=== PATIENT | male | born 1975 | race Caucasian/White ===

== ENCOUNTER 2022-11-14 13:28 | Inpatient (IN) | payer OTHER, SELFPAY ==
[2022-11-14] VITALS (24 sets, daily range): BP systolic 113–171; BP diastolic 85–129; PULSE 82–173; RESP 17–34; TEMP 36.1–36.7; O2SAT 92–98; BMI 32.8; BMI 30.7
--- NOTE | 2022-11-14 13:32 | EKG12_ITS ---
Test Reason : Blood Pressure : / mmHG Vent. Rate : 178 BPM Atrial Rate : 187 BPM P-R Int : 000 ms QRS Dur : 104 ms QT Int : 272 ms P-R-T Axes : 000 083 -42 degrees QTc Int : 468 ms Atrial fibrillation Abnormal ECG Confirmed by LEMUEL CAMACHO MD ([id number]), manager editorial JUVENCIO LI ([id number]) on 11/18/2022 2:40:00 PM Referred By: Confirmed By:LEMUEL CAMACHO MD
--- NOTE | 2022-11-14 13:44 | NURSING ---
NO OLD EKGS
[2022-11-14 13:47] LABS: Absolute Lymphocyte Count 1.08 X10^3/uL (0.83-4.51); Absolute Neutrophil Count 4.3 X10^3/uL (2.0-7.7); Basophil# 0.02 X10^3/uL; Basophil% 0.3 % (0-1); Eosinophil# 0.05 X10^3/uL; Eosinophils% 0.8 % (0-5); Hematocrit 42.9 % (40-54); Hemoglobin 14.1 g/dL (13.0-16.5); Lymphocyte # 1.08 X10^3/ul (0.83-4.51); Lymphocyte % 18.1 % (19-41); Mean Corp Hgb Conc 32.9 g/dL (32-36); Mean Corpuscular Hgb 29.6 pg (27.0-32.0); Mean Corpuscular Volume 90.1 fL (80-94); Mean Platelet Vol. 9.9 fl (6.2-12.0); Monocyte# 0.52 X10^3/uL; Monocyte% 8.7 % (0-10); NRBC Flagged by Analyzer 0 % (0-5); Neutrophil # 4.29 X10^3/uL (2.7-7.7); Neutrophil % 71.9 % (47-70); Platelet Count 145 K/mm3 (150-450); RBC Distribution Width CV 13.8 % (11.6-14.6); RBC Distribution Width SD 46.2 fl (35.1-43.9); Red Blood Count 4.76 M/mm3 (4.6-6.2)
--- NOTE | 2022-11-14 14:01 | RAD_ITS ---
STUDY: X-RAY CHEST REASON FOR EXAM: Male, 47 years old. Chest pain and shortness of breath. TECHNIQUE: Single AP portable view of the chest. COMPARISON: None. FINDINGS: EKG electrodes are seen. Moderate right pleural effusion with right basilar infiltration and/or atelectasis. The left lung is clear. Normal size heart. Normal mediastinum and philomena. Normal visualized pulmonary arteries. Normal visualized aortic arch and descending thoracic aorta. Normal visualized thoracic spine. Normal visualized ribs, clavicles, and shoulders. There is no demonstrated abnormality of the visualized soft tissue structures of the upper abdomen. RAD/Chest 1 View (Portable) IMPRESSION: Moderate right pleural effusion with right basilar atelectasis and/or infiltrate. Electronically Signed: Charles Norton MD at 14:24 EDT ,
[2022-11-14 14:04] LABS: Anion Gap 8 (5-15); BUN 14 mg/dL (7-18); Chloride 109 mmol/L (98-107); Creatinine, Serum 1.17 mg/dL (0.70-1.30); EST Glomerular Filtration Rate 71 mL/min (>60); Est Glom Filt Rate - Afr Amer 86 mL/min (>60); Glucose 89 mg/dL (74-106); Potassium 3.6 mmol/L (3.5-5.1); Sodium Level 142 mmol/L (136-145); Troponin-I HS (w/2H Reflex) 58 pg/mL (3.0-78.0)
[2022-11-14] MEDS: Metoprolol Tartrate 5 MG/5 ML Vial IV ×3 (14:15→14:32)
[2022-11-14 14:58] LABS: BNP,B-Type NATRIURETIC PEPTIDE 480.2 pg/mL (0-100)
[2022-11-14 15:01] LABS: D-Dimer Quantitative (DVT/PE) 3.01 FEU/ug/m (0.27-0.49)
--- NOTE | 2022-11-14 15:06 | CT_ITS ---
STUDY: CTA CHEST REASON FOR EXAM: Male, 47 years old. sob, tachy, elevated dimer RADIATION DOSAGE (If Supplied By Facility): CTDIvol = ( 13.48 ) mGy, DLP = ( 1897.35 ) mGycm TECHNIQUE: The examination was performed with the intravenous administration of IV 100mL Isovue-370. Post-processing of the angiographic images was performed, with multiplanar reformation and 3D reconstruction. Individualized dose optimization techniques were used for this CT. COMPARISON: None. FINDINGS: Normal enhancement of the main pulmonary artery and right and left pulmonary arteries. Normal enhancement of the bilateral peripheral pulmonary arteries. There is no demonstrated pulmonary embolism. Normal thoracic aorta and visualized great vessels. There is no demonstrated aortic dissection. Heart is enlarged. Normal mediastinum. Normal hilar regions. Normal visualized trachea and bronchi. The lungs are well expanded. Large right pleural effusion with consolidation of the right lower lobe and dependent portion of the right upper lobe Normal chest wall structures. Normal osseous structures. There is ascites seen within the upper abdomen as well as nonspecific fatty infiltration of the liver. CT/CTA Chest W/WO Contrast IMPRESSION: Large right pleural effusion with consolidation of the right lower lobe and dependent portion of the right upper lobe. No evidence for pulmonary embolus. Electronically Signed: Dwayne Palm MD at 16:18 EDT ,
--- NOTE | 2022-11-14 15:40 | CT_ITS ---
STUDY: CT ABDOMEN AND PELVIS WITH CONTRAST REASON FOR EXAM: Male, 47 years old. PAIN RADIATION DOSAGE (If Supplied By Facility): CTDIvol = ( 23.71 ) mGy, DLP = ( 1897.35 ) mGycm TECHNIQUE: Transaxial images were obtained from the dome of the diaphragm to the symphysis pubis without oral contrast. IV 100mL Isovue-370 was administered. Sagittal and coronal images were reconstructed. Individualized dose optimization techniques were used for this CT. COMPARISON: None. FINDINGS: Large pleural effusion with right lower lobe consolidation.. Heart appears enlarged with apparent enlargement of the right and left atrial chambers as well as dilatation of the inferior vena cava and hepatic veins.. Echocardiogram may be useful for further consideration if clinically warranted Nonspecific fatty infiltrated liver. There is a tiny rim calcified density along the right lateral capsule measuring approximately 9 mm. Recanalization of the umbilical artery consistent with portal hypertension in association with mild gastrosplenic varices as well as retroperitoneal venous collaterals large amount of abdominopelvic ascites and diffuse mesenteric edema.. Bile ducts are not dilated . Mildly thick walled gallbladder with pericholecystic fluid.. Normal spleen. Normal pancreas. Normal bilateral adrenal glands. Normal right kidney. Normal left kidney. Normal visualized stomach. Normal small intestine. Diverticular disease of the descending and sigmoid colon without evidence for acute diverticulitis.. No evidence for acute appendicitis. Minimal calcific plaquing of the aorta without evidence for aneurysm Normal inferior vena cava. Normal retroperitoneum. Incompletely distended thick walled bladder of uncertain significance Normal abdominal wall. Small venous collaterals noted within the inguinal region Normal osseous structures. CT/Abdomen/Pelvis W IV Cont ONLY IMPRESSION: Diffuse diverticular disease of the colon without evidence for acute diverticulitis Findings consistent with portal hypertension with extensive ascites and mesenteric edema. Large right pleural effusion with consolidation of the right lower lobe Incidental rim calcified density in the right lobe of the liver of uncertain etiology. MRI would be useful for more definitive evaluation if clinically warranted Thick-walled gallbladder without calcified stones. If concern for gallbladder disease ultrasound recommended. Multiple other findings as above Electronically Signed: Dwayne Palm MD at 16:15 EDT ,
[2022-11-14 15:43] LABS: Reflex Troponin-HS? (from REC) Y
--- NOTE | 2022-11-14 16:08 | PCM.HP.STD ---
HPI - General General Date of Admission: 11/14/22 Date of Service: 11/14/22 Chief Complaint: Shortness of breath HPI Narrative MIKEY PHILIP, is a 47 M with history of hypertension and alcohol use disorder who presented to [facility] ED on 11/14/2022 with worsening shortness of breath. Seen at the ED, present. Patient sitting up in bed, conversing normally, in no acute distress. Patient states that he has had worsening shortness of breath over the last 4 to 5 months. States he first noticed his decrease in activity level and shortness of breath with exertion during his beach vacation back in July. Since that time, he has intermittently felt palpitations. He has noticed that his legs and abdomen have progressively become more swollen over that time. States that with regards to his breathing, he has no shortness of breath at rest but with exertion, feels like he has 1 functioning lung and has a very difficult time catching his breath. Patient has history of diagnosed hypertension but is not on any home medications at this time. He reports drinking 10 beers daily for about 15 to 20 years, with about 15-20 beers daily on the weekends. He has been drinking significantly less over the last 4 to 5 months since his symptoms started. He recently went 2 weeks without drinking any alcohol. Has no history of alcohol withdrawal. He otherwise denies any fevers or chills. Denies any abdominal pain or discomfort. No other acute concerns. Vitals in ED notable for heart rate around 110, mild hypertension, satting in mid 90s on room air. Labs notable for WBC count 6, hemoglobin 14, platelets 145, sodium 142, potassium 3.6, BUN 14, creatinine 1.17, total bilirubin 1.7, direct bili 0.6, otherwise normal LFTs, BNP 480. EKG showed A-fib with RVR with heart rate 140, no significant ST changes. Chest x-ray and CTA chest showed large right pleural effusion with consolidation of right lower lobe and dependent portion of right upper lobe, no PE noted, no masses noted. CT abdomen pelvis on admit showed findings consistent with portal hypertension with extensive ascites and mesenteric edema, thick-walled gallbladder without calcified stones. [facility] Medical History Hypertension Home Medications NK 11/14/22 [History Last Taken Unknown] Allergy/AdvReac Type Severity Reaction Status Date / Time No Known Allergies Allergy Verified 11/14/22 13:28 Family History Father Colon cancer Mother Diabetes Surgical History History of foot surgery Social History Smoking Status: Never smoker alcohol intake: never ROS Constitutional Constitutional: Reports fatigue; Denies change in weight, chills or weakness Eyes Eyes: Denies change in vision Cardiovascular Cardiovascular: Reports dyspnea on exertion, edema, orthopnea, palpitations and rapid heart rate; Denies chest pain, lightheadedness or syncope Respiratory/Chest Respiratory/Chest: Denies cough, productive cough, shortness of breath at rest or wheezing Gastrointestinal Gastrointestinal: Denies abdominal pain, constipation, diarrhea, nausea or vomiting Genitourinary Genitourinary: Denies dysuria Musculoskeletal Musculoskeletal: Denies back pain Neurologic Neurologic: Denies dizziness or numbness Vital Signs Vital Signs Vital Signs: 11/14/22 13:30 11/14/22 14:00 11/14/22 14:01 Temperature 96.9 F L Temperature Source Temporal Pulse Rate 151 H Respiratory Rate 20 H Respiratory Effort Normal Non-Labored Respiratory Depth Normal Respiratory Pattern Normal Blood Pressure 171/129 H Blood Pressure Mean 143 Pulse Ox 98 Oxygen Delivery Method Room Air Room Air Room Air 11/14/22 14:01 11/14/22 14:15 11/14/22 14:20 Temperature Temperature Source Pulse Rate 173 H 166 H 138 H Respiratory Rate 24 H 24 H 27 H Respiratory Effort Respiratory Depth Respiratory Pattern Blood Pressure 146/113 H 145/96 H 146/118 H Blood Pressure Mean 122 101 127 Pulse Ox 96 94 94 Oxygen Delivery Method 11/14/22 14:30 11/14/22 14:35 11/14/22 15:01 Temperature Temperature Source Pulse Rate 128 H 126 H Respiratory Rate 17 19 H Respiratory Effort Respiratory Depth Respiratory Pattern Blood Pressure 136/111 H 132/109 H 124/100 H Blood Pressure Mean 119 118 109 Pulse Ox 95 93 Oxygen Delivery Method Physical Exam Const alert, oriented x3, no apparent distress, average body habitus, healthy appearing and well nourished Constitutional Narrative: Pleasant male, sitting up in bed, conversing normally, no acute distress. General Appearance: cooperative, comfortable, well kempt and well developed HEENT normocephalic, head/scalp atraumatic, hearing grossly normal bilaterally, nasal mucous membranes and turbinates normal and moist oral mucous membranes Eyes PERRL, EOMs intact bilaterally and conjunctivae normal Neck full ROM, no lymphadenopathy and supple Lymph Lymphatic: no lymphadenopathy noted Chest inspection of chest normal Resp Resp Narrative: Absent breath sounds from right mid lung down to the right base. Mild crackles noted in upper airways bilaterally. Otherwise good air movement in left lung, no wheezing noted. Satting well on room air, no increased work of breathing noted. Cardio no murmurs and peripheral pulses 2+ throughout Cardio Narrative: A-fib with RVR. GI GI Narrative: Moderately distended, soft, nontender to palpation. Fluid wave noted. Back/Spine normal ROM Extremity normal to inspection and full ROM Extremity Narrative: +2-3 bilateral lower extremity pitting edema. Skin no rashes or lesions noted Psych mental status grossly normal Results Lab / Micro Data 11/14/22 13:35 11/14/22 13:35 Labs: Laboratory Results - last 24 hr 11/14/22 13:35: WBC 6.0, RBC 4.76, Hgb 14.1, Hct 42.9, MCV 90.1, MCH 29.6, MCHC 32.9, RDW Std Deviation 46.2 H, RDW Coeff of Hannah 13.8, Plt Count 145 L, MPV 9.9, Immature Gran % (Auto) 0.200, Neut % (Auto) 71.9 H, Lymph % (Auto) 18.1 L, Wake % (Auto) 8.7, Eos % (Auto) 0.8, Baso % (Auto) 0.3, Absolute Neuts (auto) 4.3, Absolute Lymphs (auto) 1.08, Nucleated RBC % 0, Sodium 142, Potassium 3.6, Chloride 109 H, Carbon Dioxide 25.0, Anion Gap 8, BUN 14, Creatinine 1.17, Est GFR (MDRD) Af Amer 86, Est GFR (MDRD) Non-Af 71, BUN/Creatinine Ratio 12.0, Glucose 89, Calcium 10.0, Troponin I High Sens 58, B-Natriuretic Peptide 480.2 H 11/14/22 14:39: D-Dimer Quant (PE/DVT) 3.01 H* Radiology Impression Chest X-Ray 11/14/22 14:01 IMPRESSION: Moderate right pleural effusion with right basilar atelectasis and/or infiltrate. Electronically Signed: Charles Norton MD at 14:24 EDT , Assessment & Plan Assessment/Plan (1) Atrial fibrillation with rapid ventricular response: PLAN: Plan Patient is a 47-year-old male with history of hypertension and alcohol use disorder who presented to [facility] ED on 11/14/2022 with worsening shortness of breath. 1. A-fib with RVR, new diagnosis; concern for new onset heart failure Primary risk factor seems to be history of heavy alcohol use. Presented to PCP office on 11/14 with intermittent palpitations over the past 4 to 5 months with worsening shortness of breath, EKG showed A-fib with RVR with rate around 140, sent to ED for further evaluation. Repeat EKG in ED was similar, mildly hypertensive, started on Cardizem drip with improvement in heart rate to 110s. [id number] score of 1 (HTN) but given suspected A-fib over past several months and possible tachycardia mediated cardiomyopathy, initiated on heparin drip in the ED for anticoagulation. ? Admit under inpatient status to PCU. Cardiology consulted. Echo ordered. Given 1 dose of IV Lasix 40 mg in ED, will start IV Lasix 40 mg twice daily given volume overload. Continue Cardizem drip for now, goal heart rate less than 110. TSH, hemoglobin A1c, lipid panel ordered. 2. New onset large volume ascites, suspected portal hypertension in setting of known alcohol use disorder Ascites and portal hypertension could be secondary to heart failure in setting of longstanding A-fib with RVR as noted above. However, also have concern for possible cirrhosis in setting of known heavy alcohol use. Patient reported to drinking 10 beers daily for about 15 to 20 years, with often 15-20 beers per day on weekends. Notes his beer intake was somewhat increased during COVID, as he was working from home. Has significantly cut back his alcohol use over the past 4 months since he started having shortness of breath and decreased activity level. Went 2 weeks without drinking alcohol recently. No history of alcohol withdrawal. CT abdomen pelvis on admit showed findings consistent with portal hypertension with extensive ascites and mesenteric edema, thick-walled gallbladder without calcified stones. INR 1.3 on admit. Meld?Na score of 13. ? Interventional radiology consulted for diagnostic and therapeutic paracentesis. Gastroenterology consulted. Daily MELD labs. We will hold on CIWA protocol for now, can start if needed. 3. Large right pleural effusion Suspect secondary to either new onset heart failure versus possible hepatic hydrothorax in setting of new onset ascites from portal hypertension as noted above. Patient has remote history of chewing tobacco use, no cigarette smoking history. Low concern for malignant pleural effusion. Chest x-ray and CTA chest showed large right pleural effusion with consolidation of right lower lobe and dependent portion of right upper lobe, no PE noted, no masses noted. BNP 480. ? Interventional radiology consulted for diagnostic and therapeutic thoracentesis. IV Lasix 40 mg twice daily as above. DVT prophylaxis: Heparin drip CODE STATUS: Full code, verified Expected disposition: Home, 3 to 4 days Total clinical time spent by myself addressing the patient's medical issues, reviewing all the data, and collaborating with patient's care team: 75 minutes. Charges/Coding Visit Charges Inpatient E&M: 65298 Init Hosp L3
[2022-11-14] MEDS: dilTIAZem 25 MG/5 ML Vial 15 MG IV BOLUS (16:11)
[2022-11-14] MEDS: Diltiazem 125 MG in Dextrose 5%-Water (100mL Bag) 100 ML CONT INF (16:12)
--- NOTE | 2022-11-14 16:25 | NURSING ---
106 MOSTELLER AFIB RVR, PLEURAL EFFUSION
--- NOTE | 2022-11-14 16:30 | EX.ED.DYSGE1 ---
HPI History of Present Illness Chief Complaint: Shortness of Breath Informant: patient Narrative Narrative: Patient is a 47-year-old male with history of hypertension (currently not on any medications) as well as alcohol use presenting with atrial fibrillation at PCP office. Patient previously been on lisinopril but stopped it, is unclear why. He does not have a known history of atrial fibrillation. He was seen today because he is having ongoing issues of sound like orthopnea, pain, leg swelling and ice intolerance. Patient states that over the past few months he will wake up frequently at night short of breath and have to go into the recliner. He notes he is active in bed over the past week. Denies any fever or chills. Denies any chest pain. Palpitations as much as feels that when he is doing minor activities such as yard work his heart having to work a lot harder than it normally would. Denies any significant GI or symptoms. Denies any fever or chills. No other complaints at this time. [facility] Medical History Hypertension Home Medications NK 11/14/22 [History Last Taken Unknown] Allergy/AdvReac Type Severity Reaction Status Date / Time No Known Allergies Allergy Verified 11/14/22 13:28 Family History Father Colon cancer Mother Diabetes Surgical History History of foot surgery Social History Smoking Status: Never smoker alcohol intake: never ROS ROS ED Constitutional Constitutional ED: Denies chills or fever(s) Cardiovascular Cardiovascular: Reports orthopnea and paroxysmal nocturnal dyspnea; Denies chest pain or palpitations Respiratory/Chest Respiratory/Chest: Reports dyspnea, orthopnea and paroxysmal nocturnal dyspnea; Denies cough Gastrointestinal Gastrointestinal: Reports other Details: Bloating ; Denies abdominal pain, nausea or vomiting Musculoskeletal Musculoskeletal: Denies arthralgias or myalgias Integumentary Denies rash Neurologic Neurologic: Denies headache(s) or weakness Psychiatric Psychiatric: Denies anxiety Hematologic/Lymphatic Hematologic/Lymphatic: Denies easy bleeding or easy bruising EXAM Physical Exam Const Vital Signs: 11/14/22 13:30 11/14/22 14:00 11/14/22 14:01 Temperature 96.9 F L Temperature Source Temporal Pulse Rate 151 H Respiratory Rate 20 H Respiratory Effort Normal Non-Labored Respiratory Depth Normal Respiratory Pattern Normal Blood Pressure 171/129 H Blood Pressure Mean 143 Pulse Ox 98 Oxygen Delivery Method Room Air Room Air Room Air 11/14/22 14:01 11/14/22 14:15 11/14/22 14:20 Temperature Temperature Source Pulse Rate 173 H 166 H 138 H Respiratory Rate 24 H 24 H 27 H Respiratory Effort Respiratory Depth Respiratory Pattern Blood Pressure 146/113 H 145/96 H 146/118 H Blood Pressure Mean 122 101 127 Pulse Ox 96 94 94 Oxygen Delivery Method 11/14/22 14:30 11/14/22 14:35 11/14/22 15:01 Temperature Temperature Source Pulse Rate 128 H 126 H Respiratory Rate 17 19 H Respiratory Effort Respiratory Depth Respiratory Pattern Blood Pressure 136/111 H 132/109 H 124/100 H Blood Pressure Mean 119 118 109 Pulse Ox 95 93 Oxygen Delivery Method 11/14/22 16:00 Temperature Temperature Source Pulse Rate 128 H Respiratory Rate 29 H Respiratory Effort Respiratory Depth Respiratory Pattern Blood Pressure 121/111 H Blood Pressure Mean 116 Pulse Ox 94 Oxygen Delivery Method Positive well nourished and well developed General Appearance ED: well developed and NAD HEENT Reports moist mucous membranes Eyes PERRL and EOMs intact bilaterally General Eye ED: Negative for scleral icterus Neck supple and no JVD Chest Wall inspection of chest normal and palpation of chest normal Resp normal respiratory effort Resp Narrative: Diminished breath sounds at the right base Cardio Rate: tachycardic Rhythm: abnormal rhythm irregularly irregular GI normal to inspection, nondistended, normoactive bowel sounds and non-tender Palpation: Negative for tender or guarding Back/Spine no CVA tenderness Extremity Extremity Narrative: 2+ Plus pretibial pitting edema bilateral General Extremety ED: Yes edema General Extremity: edema Neuro oriented x3 Sensorium / Orientation: alert Motor Exam: Negative for general weakness Psych mental status grossly normal Skin no rashes or lesions noted and no wounds General Skin Exam: Negative for jaundice MDM MDM MDM Narrative Medical decision making narrative: Is evaluated for edema and new onset atrial fibrillation with RVR. Protocol orders placed and screening EKG obtained which does show atrial fibrillation with rapid ventricular response. Patient is hemodynamically stable does not require emergent cardioversion. He is given 3 doses of IV metoprolol 5 mg with good blood pressure control but no significant improvement of his blood pressure (heart rate remains above 120). Decision is made to place him on a Cardizem drip. He does have good response with this. He does appear to be mildly fluid overloaded has a pleural effusion on his chest x-ray on the right. This is reviewed by myself as well as radiology. Differential for the cause of his atrial fibrillation, shortness of breath and tachycardia also includes pulmonary emboli so a D-dimer as well as a BMP is ordered. Both of these are elevated. CTA of the chest not show any pulmonary emboli but does show large right pleural effusion with consolidation of the right lower lobe. biomass technician had requested to add on a abdomen and pelvis due to abnormalities found on scalp. This shows findings consistent with portal hypertension with extensive ascites and mesenteric edema. I believe patient will benefit from admission given his multiple abnormal findings as well as his requirement for Cardizem drip. Case is discussed with [place] physician, Dr. Ghotra. We decided to place the patient on a heparin drip. Also discussed potential diagnostic thoracentesis as malignancy is also on the differential. It is possible he could have a component of RIVAS versus alcoholic liver failure. I will add on coags as well as liver panel and lipase. Patient remitted to the PCU. Patient is agreeable this plan of care and cooperative in the emergency room. He is mentating well throughout his ER visit. Lab Data Labs: Laboratory Results - last 24 hr 11/14/22 11/14/22 13:35 14:39 WBC 6.0 RBC 4.76 Hgb 14.1 Hct 42.9 MCV 90.1 MCH 29.6 MCHC 32.9 RDW Std Deviation 46.2 H RDW Coeff of Hannah 13.8 Plt Count 145 L MPV 9.9 Immature Gran % (Auto) 0.200 Neut % (Auto) 71.9 H Lymph % (Auto) 18.1 L Crosby % (Auto) 8.7 Eos % (Auto) 0.8 Baso % (Auto) 0.3 Absolute Neuts (auto) 4.3 Absolute Lymphs (auto) 1.08 Nucleated RBC % 0 D-Dimer Quant (PE/DVT) 3.01 H* Sodium 142 Potassium 3.6 Chloride 109 H Carbon Dioxide 25.0 Anion Gap 8 BUN 14 Creatinine 1.17 Est GFR (MDRD) Af Amer 86 Est GFR (MDRD) Non-Af 71 BUN/Creatinine Ratio 12.0 Glucose 89 Calcium 10.0 Troponin I High Sens 58 B-Natriuretic Peptide 480.2 H Radiography Diagnostic Testing: Clinical Impression(s) from Imaging Studies Chest X-Ray 11/14/22 14:01 IMPRESSION: Moderate right pleural effusion with right basilar atelectasis and/or infiltrate. Electronically Signed: Charles Norton MD at 14:24 EDT , Chest CTA 11/14/22 15:06 IMPRESSION: Large right pleural effusion with consolidation of the right lower lobe and dependent portion of the right upper lobe. No evidence for pulmonary embolus. Electronically Signed: Dwayne Palm MD at 16:18 EDT , Abdomen/Pelvis CT 11/14/22 15:40 IMPRESSION: Diffuse diverticular disease of the colon without evidence for acute diverticulitis Findings consistent with portal hypertension with extensive ascites and mesenteric edema. Large right pleural effusion with consolidation of the right lower lobe Incidental rim calcified density in the right lobe of the liver of uncertain etiology. MRI would be useful for more definitive evaluation if clinically warranted Thick-walled gallbladder without calcified stones. If concern for gallbladder disease ultrasound recommended. Multiple other findings as above Electronically Signed: Dwayne Palm MD at 16:15 EDT , Critical Care Time Critical Care Time: Yes Critical care time (excluding procedures): 30-74 minutes (35), Discussing w/Patient &/or Family/Larry Car Operator and Arranging Admission or Transfer Discharge Plan Triage Chief Complaint: Shortness of Breath ED Provider: Renee Pierre Dx/Rx/DC Orders Clinical Impression: Atrial fibrillation, new onset, Pleural effusion, right, Hypertension, Atrial fibrillation with rapid ventricular response Primary Care Provider: Phoebe Carvalho HOME HEALTH CARE COORDINATOR Disposition Disposition: Acute Care Hospital [facility]
[2022-11-14 16:37] LABS: International Normalized Ratio 1.3; Partial Thromboplast Time 33.3 Seconds (24.1-36.2); Prothrombin Time (Protime)PT. 16.5 SECONDS (11.7-14.9)
[2022-11-14] MEDS: HEPARIN/D5w 25,000 UNITS 25,000 UNITS/250 ML IV.SOLN. 16 UNITS CONT INF (17:19)
[2022-11-14 17:25] LABS: AST(SGOT) 32 U/L (15-37); Alanine Aminotransfer ALT/SGPT 31 U/L (16-61); Albumin, Serum 3.9 g/dL (3.2-5.0); Alkaline Phosphatase 81 U/L (45-117); Bilirubin, Direct 0.61 mg/dL (0.00-0.30); Globulin 3.2 g/dL (2.2-4.2); Lipase 40 U/L (13-75); Protein, Total 7.1 g/dL (6.4-8.2); Troponin-I HS 66 pg/mL (3.0-78.0)
[2022-11-14 17:31] LABS: Thyroid Stim Hormone (TSH) 5.87 uIU/mL (0.358-3.74)
[2022-11-14] MEDS: Furosemide 40 MG/4 ML Vial IV (17:46)
--- NOTE | 2022-11-14 17:53 | ECHOD_ITS ---
Reason For Study: AFIB/FLUTTER Procedure This was a 2D Doppler, Color Flow transthoracic echocardiogram. Exam performed portable in patient room. Left Ventricle Mildly dilated left ventricle. Moderate concentric left ventricular hypertrophy. The left ventricular ejection fraction is 25 %. There is severe global hypokinesis of the left ventricle. Right Ventricle Moderately dilated right ventricle. Moderate global right ventricular systolic dysfunction. Atria The left atrium is mildly enlarged. The right atrium is moderately enlarged. Mitral Valve Normal mitral valve. Mild (1+) mitral valve insufficiency. Tricuspid Valve Normal tricuspid valve. Mild to moderate (1-2+) tricuspid valve insufficiency. Pulmonary artery systolic pressure is 45 mmHg. Aortic Valve Normal aortic valve. Trisinus/trileaflet aortic valve. Pulmonic Valve Normal pulmonic valve. Great Vessels Normal aortic root. The pulmonary artery is normal size. The inferior vena cava is dilated. Pericardium/Pleural No pericardial effusion. MMode/2D Measurements & Calculations LVIDd: 5.5 cm IVSd: 1.4 cm Ao root diam: 3.5 cm LVIDs: 4.3 cm LVPWd: 1.4 cm RVDd: 4.2 cm FS: 21.6 % LAV(MOD-bp): 91.9 ml LVAd ap4: 48.5 cm2 LVAd ap2: 51.9 cm2 LAV(MOD-bp) Indexed: 37.3 ml/m2 LVLd ap4: 9.7 cm LVLd ap2: 9.5 cm LAV(MOD-sp2): 108.1 ml EDV(MOD-sp4): 199.0 ml EDV(MOD-sp2): 239.3 ml LAV(MOD-sp4): 78.8 ml EDV(sp4-el): 205.7 ml EDV(sp2-el): 239.7 ml LVAs ap4: 32.4 cm2 LVAs ap2: 38.4 cm2 LVLs ap4: 8.6 cm LVLs ap2: 8.8 cm ESV(MOD-sp4): 101.3 ml ESV(MOD-sp2): 150.5 ml ESV(sp4-el): 104.2 ml ESV(sp2-el): 142.9 ml EF(MOD-sp4): 49.1 % EF(MOD-sp2): 37.1 % EF(sp4-el): 49.4 % SV(MOD-sp4): 97.7 ml SV(MOD-sp2): 88.8 ml SV(sp4-el): 101.6 ml LA dimension(2D): 5.1 cm LA A4 area: 23.8 cm2 RA A4 area: 28.0 cm2 TAPSE: 2.1 cm Doppler Measurements & Calculations MV E max gold: 94.0 cm/sec Lat Peak E' Gold: 14.6 cm/sec Med Peak E' Gold: 10.5 cm/sec E/E' lat: 6.4 E/E' med: 9.0 Ao V2 max: 164.2 cm/sec LV V1 max: 107.7 cm/sec PA V2 max: 97.4 cm/sec Ao max P.1 mmHg LV V1 max P.7 mmHg Ao V2 mean: 120.6 cm/sec LV V1 mean P.7 mmHg Ao mean P.7 mmHg LV V1 mean: 76.3 cm/sec Ao V2 VTI: 30.0 cm LV V1 VTI: 18.5 cm AV (velocity ratio): 0.62 PI dec slope: 156.9 cm/sec2 TR max gold: 306.6 cm/sec TR max P.6 mmHg ECHO/Echo Complete Interpretation Summary The left ventricular ejection fraction is 25 %. Mildly dilated left ventricle. Moderate concentric left ventricular hypertrophy. There is severe global hypokinesis of the left ventricle. Pulmonary artery systolic pressure is 45 mmHg. Biatrial enlargement Ordering Physician: Drew Ghotra Referring Physician: Phoebe Carvalho Performed By: Lexis Sanchez, RANDOLPH, RVT
[2022-11-14 21:08] LABS: AST(SGOT) 37 U/L (15-37); Alanine Aminotransfer ALT/SGPT 32 U/L (16-61); Albumin, Serum 4.4 g/dL (3.2-5.0); Alkaline Phosphatase 88 U/L (45-117); Bilirubin, Direct 0.57 mg/dL (0.00-0.30); Cholesterol 140 mg/dL (200); Globulin 3.5 g/dL (2.2-4.2); High Density Lipoprotein 36 mg/dL; Protein, Total 7.9 g/dL (6.4-8.2); Triglycerides 86 mg/dL; Very Low Density Lipoprotein 17 mg/dL (5-40)
[2022-11-14 23:29] LABS: Partial Thromboplast Time 106.6 Seconds (24.1-36.2)
--- NOTE | 2022-11-14 23:38 | EKG12_ITS ---
Test Reason : NSR Blood Pressure : / mmHG Vent. Rate : 087 BPM Atrial Rate : 000 BPM P-R Int : 000 ms QRS Dur : 104 ms QT Int : 416 ms P-R-T Axes : 000 082 226 degrees QTc Int : 500 ms Atrial fibrillation Incomplete right bundle branch block ST & T wave abnormality, consider lateral ischemia Prolonged QT Abnormal ECG When compared with ECG of 14-NOV-2022 13:36, MANUAL COMPARISON REQUIRED, DATA IS UNCONFIRMED Confirmed by DOUG CORONADO, LEMUEL ([id number]), photography editor MICHELLE SALAZAR ([id number]) on 12/01/2022 1:10:23 PM Referred By: Confirmed By:LEMUEL CAMACHO MD
[2022-11-15] VITALS (19 sets, daily range): BP systolic 92–156; BP diastolic 71–138; PULSE 67–107; RESP 14–25; TEMP 36.4–36.7; O2SAT 90–98; BMI 30.9
--- NOTE | 2022-11-15 | FLU_PTH ---
PATIENT: MIKEY PHILIP LOC: [facility] U#:[id number] AGE/SX: 47/M ROOM: [facility] RE11/14/[address]: Dr. Kris Vásquez MD : [id number] BED: 1 DIS: 11/17/2022 SPEC #: [id number] RECD: 11/15/22 10:59 STATUS: MEHRDAD REQ #: [id number] JACQUE: 11/15/22 00:[address]: Kris Vásquez DEPT: CYTOLOGY RECD BY: Darrick Bynum ENTERED: 11/16/22 10:30 SP TYPE: Fluid OTHR DR: DO Dr. Daniel Sanches MD Dr. Gabriele Pedicelli, MD Elizabeth Steiner, [employer]C Tissues: THORACIC FLUID Procedures: Special Stain Group II Surgery Specimen Level IV Cytospin Fluid HEADER OPERATION: Ultrasound-guided thoracentesis, right PRE-OP DIAGNOSIS: Right pleural effusion TISSUE SUBMITTED: Thoracentesis fluid for cytology DIAGNOSIS CYTOLOGY Thoracentesis fluid for cytology (cytospin and cell block): Negative for malignant cells. See comment. JAY:shiv 11/17/2022 COMMENT Clinical correlation and appropriate follow up are necessary. CYTOLOGY STUDY Slides are reviewed. CYTOLOGY GROSS Received is 80 ml of yellow cloudy fluid labeled with the patient's name and and designated per the requisition as thoracentesis. Submitted for cytology preparation including cell block. / shiv 11/16/2022 TC:5 CPT: 20330, 47631
--- NOTE | 2022-11-15 00:20 | NURSING ---
Patient appears to have p-waves during tele assessment, patient HR has been 70-100BPM, patient appears to be in SA with PVC's, PAC's and pauses, rhythm appears regular otherwise, EKG ordered to verify that patient is not in SA.
[2022-11-15] MEDS: Diltiazem 125 MG in Dextrose 5%-Water (100mL Bag) 100 ML 10 MG CONT INF (04:42)
[2022-11-15] MEDS: Furosemide 40 MG/4 ML Vial IV ×2 (04:43→17:55)
--- NOTE | 2022-11-15 07:47 | PN.HOSP_ITS ---
Reason for Visit Reason for Visit: Diagnoses Unspecified atrial fibrillation (11/14/22) Objective Data Objective Data Vital Signs: Vital Signs Temp Pulse Resp BP Pulse Ox O2 Del Method 98.1 F 69 17 109/81 H 96 Room Air 11/15/22 00:05 11/15/22 06:00 11/15/22 06:00 11/15/22 06:00 11/15/22 06:00 11/15/22 06:00 Oxygen Delivery Method Room Air Weight: 112.3 kg Body Mass Index (BMI) 30.9 Intake & Output: Intake and Output for Last 24 Hours 11/13/22 11/14/22 11/15/22 23:59 23:59 23:59 Intake Total 160.77 / 160.77 70 / 70 Balance 160.77 / 160.77 Lab / Micro Data 11/14/22 13:35 11/14/22 13:35 Labs: Laboratory Results - last 24 hr 11/14/22 13:35: WBC 6.0, RBC 4.76, Hgb 14.1, Hct 42.9, MCV 90.1, MCH 29.6, MCHC 32.9, RDW Std Deviation 46.2 H, RDW Coeff of Hannah 13.8, Plt Count 145 L, MPV 9.9, Immature Gran % (Auto) 0.200, Neut % (Auto) 71.9 H, Lymph % (Auto) 18.1 L, [place] % (Auto) 8.7, Eos % (Auto) 0.8, Baso % (Auto) 0.3, Absolute Neuts (auto) 4.3, Absolute Lymphs (auto) 1.08, Nucleated RBC % 0, Sodium 142, Potassium 3.6, Chloride 109 H, Carbon Dioxide 25.0, Anion Gap 8, BUN 14, Creatinine 1.17, Est GFR (MDRD) Af Amer 86, Est GFR (MDRD) Non-Af 71, BUN/Creatinine Ratio 12.0, Glucose 89, Calcium 10.0, Troponin I High Sens 58, B-Natriuretic Peptide 480.2 H 11/14/22 14:39: D-Dimer Quant (PE/DVT) 3.01 H* 11/14/22 16:20: PT 16.5 H, INR 1.3, APTT 33.3 11/14/22 16:45: Hemoglobin A1c 5.0, Total Bilirubin 1.70 H, Direct Bilirubin 0.61 H, AST 32, ALT 31, Alkaline Phosphatase 81, Troponin I High Sens 66, Total Protein 7.1, Albumin 3.9, Globulin 3.2, Lipase 40, TSH 5.87 H 11/14/22 17:53: Total Bilirubin 1.70 H, Direct Bilirubin 0.57 H, AST 37, ALT 32, Alkaline Phosphatase 88, Total Protein 7.9, Albumin 4.4, Globulin 3.5, Triglycerides 86, Cholesterol 140, LDL Cholesterol 87, VLDL Cholesterol 17, HDL Cholesterol 36 L 11/14/22 22:51: APTT 106.6 H* Radiography Diagnostic Testing: Radiology Impression Chest X-Ray 11/14/22 14:01 IMPRESSION: Moderate right pleural effusion with right basilar atelectasis and/or infiltrate. Electronically Signed: Charles Norton MD at 14:24 EDT , Chest CTA 11/14/22 15:06 IMPRESSION: Large right pleural effusion with consolidation of the right lower lobe and dependent portion of the right upper lobe. No evidence for pulmonary embolus. Electronically Signed: Dwayne Palm MD at 16:18 EDT , Abdomen/Pelvis CT 11/14/22 15:40 IMPRESSION: Diffuse diverticular disease of the colon without evidence for acute diverticulitis Findings consistent with portal hypertension with extensive ascites and mesenteric edema. Large right pleural effusion with consolidation of the right lower lobe Incidental rim calcified density in the right lobe of the liver of uncertain etiology. MRI would be useful for more definitive evaluation if clinically warranted Thick-walled gallbladder without calcified stones. If concern for gallbladder disease ultrasound recommended. Multiple other findings as above Electronically Signed: Dwayne Palm MD at 16:15 EDT , Physical Exam Narrative GENERAL: cooperative HEENT: Atraumatic; normocephalic EYES; Anicteric, Normal Conjunctiva NECK; supple, normal thyroid, RESPIRATORY: Diminished to auscultation CARDIOVASCULAR: Regular S1 S2, GI: soft, normoactive bowel sounds, : No Renal angle tenderness; EXTREMITIES: No edema, no clubbing, MUSCULOSKELETAL: no muscle wasting NEURO: Awake; no lateralizing signs. SKIN: No Rash PSYCH; Flat affect Assessment & Plan Assessment/Plan (1) Atrial fibrillation with rapid ventricular response: PLAN: Plan Patient is a 47-year-old male with history of hypertension and alcohol use disorder who presented to [facility] ED on 11/14/2022 with worsening shortness of breath. 1. A-fib with RVR, new diagnosis; 2. Acute congestive heart failure 3. Large right-sided pleural effusion 4. Ascites in the setting of suspected cirrhosis of the liver 5. Chronic alcohol use 6. Class I obesity with BMI of 30 concern for new onset heart failure Primary risk factor seems to be history of heavy alcohol use. Presented to PCP office on 11/14 with intermittent palpitations over the past 4 to 5 months with worsening shortness of breath, EKG showed A-fib with RVR with rate around 140, sent to ED for further evaluation. Repeat EKG in ED was similar, mildly hypertensive, started on Cardizem drip with improvement in heart rate to 110s. [id number] score of 1 (HTN) but given suspected A-fib over past several months and possible tachycardia mediated cardiomyopathy, initiated on heparin drip in the ED for anticoagulation. ? Admit under inpatient status to PCU. Cardiology consulted. Echo ordered. Given 1 dose of IV Lasix 40 mg in ED, will start IV Lasix 40 mg twice daily given volume overload. Continue Cardizem drip for now, goal heart rate less than 110. TSH, hemoglobin A1c, lipid panel ordered. 2. New onset large volume ascites, suspected portal hypertension in setting of known alcohol use disorder Ascites and portal hypertension could be secondary to heart failure in setting of longstanding A-fib with RVR as noted above. However, also have concern for possible cirrhosis in setting of known heavy alcohol use. Patient reported to drinking 10 beers daily for about 15 to 20 years, with often 15-20 beers per day on weekends. Notes his beer intake was somewhat increased during COVID, as he was working from home. Has significantly cut back his alcohol use over the past 4 months since he started having shortness of breath and decreased activity level. Went 2 weeks without drinking alcohol recently. No history of alcohol w ithdrawal. CT abdomen pelvis on admit showed findings consistent with portal hypertension with extensive ascites and mesenteric edema, thick-walled gallbladder without calcified stones. INR 1.3 on admit. Meld?Na score of 13. ? Interventional radiology consulted for diagnostic and therapeutic para centesis. Gastroenterology consulted. Daily MELD labs. We will hold on CIWA protocol for now, can start if needed. 3. Large right pleural effusion Suspect secondary to either new onset heart failure versus possible hepatic hydrothorax in setting of new onset ascites from portal hypertension as noted above. Patient has remote history of chewing tobacco use, no cigarette smoking history. Low concern for malignant pleural effusion. Chest x-ray and CTA chest showed large right pleural effusion with consolidation of right lower lobe and dependent portion of right upper lobe, no PE noted, no masses noted. BNP 480. ? Interventional radiology consulted for diagnostic and therapeutic thorace ntesis. IV Lasix 40 mg twice daily as above. DVT prophylaxis: Heparin drip CODE STATUS: Full code, verified Expected disposition: Home, 3 to 4 days Total clinical time spent by myself addressing the patient's medical issues, reviewing all the data, and collaborating with patient's care team: 75 minutes.
--- NOTE | 2022-11-15 07:47 | PCM.PN.HOSP ---
Reason for Visit Reason for Visit: Diagnoses Unspecified atrial fibrillation (11/14/22) Subjective Subjective Patient is a 47-year-old male with history of chronic alcohol use as well as hypertension presented to the emergency department with worsening shortness of breath with abdominal distention and bilateral lower extremity swelling Objective Data Objective Data Vital Signs: Vital Signs Temp Pulse Resp BP Pulse Ox O2 Del Method 98.1 F 69 17 109/81 H 96 Room Air 11/15/22 00:05 11/15/22 06:00 11/15/22 06:00 11/15/22 06:00 11/15/22 06:00 11/15/22 06:00 Oxygen Delivery Method Room Air Weight: 112.3 kg Body Mass Index (BMI) 30.9 Intake & Output: Intake and Output for Last 24 Hours 11/13/22 11/14/22 11/15/22 23:59 23:59 23:59 Intake Total 160.77 / 160.77 70 / 70 Balance 160.77 / 160.77 70 / 70 Lab / Micro Data 11/15/22 08:33 11/14/22 13:35 Labs: Laboratory Results - last 24 hr 11/14/22 13:35: WBC 6.0, RBC 4.76, Hgb 14.1, Hct 42.9, MCV 90.1, MCH 29.6, MCHC 32.9, RDW Std Deviation 46.2 H, RDW Coeff of Hannah 13.8, Plt Count 145 L, MPV 9.9, Immature Gran % (Auto) 0.200, Neut % (Auto) 71.9 H, Lymph % (Auto) 18.1 L, Will % (Auto) 8.7, Eos % (Auto) 0.8, Baso % (Auto) 0.3, Absolute Neuts (auto) 4.3, Absolute Lymphs (auto) 1.08, Nucleated RBC % 0, Sodium 142, Potassium 3.6, Chloride 109 H, Carbon Dioxide 25.0, Anion Gap 8, BUN 14, Creatinine 1.17, Est GFR (MDRD) Af Amer 86, Est GFR (MDRD) Non-Af 71, BUN/Creatinine Ratio 12.0, Glucose 89, Calcium 10.0, Troponin I High Sens 58, B-Natriuretic Peptide 480.2 H 11/14/22 14:39: D-Dimer Quant (PE/DVT) 3.01 H* 11/14/22 16:20: PT 16.5 H, INR 1.3, APTT 33.3 11/14/22 16:45: Hemoglobin A1c 5.0, Total Bilirubin 1.70 H, Direct Bilirubin 0.61 H, AST 32, ALT 31, Alkaline Phosphatase 81, Troponin I High Sens 66, Total Protein 7.1, Albumin 3.9, Globulin 3.2, Lipase 40, TSH 5.87 H 11/14/22 17:53: Total Bilirubin 1.70 H, Direct Bilirubin 0.57 H, AST 37, ALT 32, Alkaline Phosphatase 88, Total Protein 7.9, Albumin 4.4, Globulin 3.5, Triglycerides 86, Cholesterol 140, LDL Cholesterol 87, VLDL Cholesterol 17, HDL Cholesterol 36 L 11/14/22 22:51: APTT 106.6 H* Radiography Diagnostic Testing: Radiology Impression Chest X-Ray 11/14/22 14:01 IMPRESSION: Moderate right pleural effusion with right basilar atelectasis and/or infiltrate. Electronically Signed: Charles Norton MD at 14:24 EDT , Chest CTA 11/14/22 15:06 IMPRESSION: Large right pleural effusion with consolidation of the right lower lobe and dependent portion of the right upper lobe. No evidence for pulmonary embolus. Electronically Signed: Dwayne Palm MD at 16:18 EDT , Abdomen/Pelvis CT 11/14/22 15:40 IMPRESSION: Diffuse diverticular disease of the colon without evidence for acute diverticulitis Findings consistent with portal hypertension with extensive ascites and mesenteric edema. Large right pleural effusion with consolidation of the right lower lobe Incidental rim calcified density in the right lobe of the liver of uncertain etiology. MRI would be useful for more definitive evaluation if clinically warranted Thick-walled gallbladder without calcified stones. If concern for gallbladder disease ultrasound recommended. Multiple other findings as above Electronically Signed: Dwayne Palm MD at 16:15 EDT , Physical Exam Narrative GENERAL: cooperative HEENT: Atraumatic; normocephalic EYES; Anicteric, Normal Conjunctiva NECK; supple, normal thyroid, RESPIRATORY: Diminished to auscultation CARDIOVASCULAR: Regular S1 S2, GI: soft, normoactive bowel sounds, ascites : No Renal angle tenderness; EXTREMITIES: edema, no clubbing, MUSCULOSKELETAL: no muscle wasting NEURO: Awake; no lateralizing signs. SKIN: No Rash PSYCH; Flat affect Assessment & Plan Assessment/Plan (1) Atrial fibrillation with rapid ventricular response: PLAN: Plan Patient is a 47-year-old male with history of chronic alcohol use as well as hypertension presented to the emergency department with worsening shortness of breath with abdominal distention and bilateral lower extremity swelling 1. A-fib with RVR, new diagnosis; ? Patient admitted to a monitored bed started on Cardizem drip as well as heparin. Echo ordered as part of patient's management. Patient heparin discontinued given patient low [id number] score of 1 (HTN). 2. Acute congestive heart failure ? Per stated by patient A-fib with RVR as well as suspected underlying cardiomyopathy from alcohol use echo ordered for subsequent assessment. Placed on strict input and output, daily weight, low-sodium diet and diuretic therapy 3. Large right-sided pleural effusion ? Order placed for patient to undergo ultrasound-guided diagnostic and therapeutic thoracocentesis 4. Ascites i ? Do suspect underlying cyst cirrhosis of the liver given patient chronic alcohol use. An order placed for diagnostic and therapeutic paracentesis 5. Chronic alcohol use ? Counseled on cessation 6. Class I obesity with BMI of 30 ? Weight loss advised 7. Essential hypertension ? Currently not on any medications 8. DVT prophylaxis ? Patient was on heparin discontinued Time spent in the patient's overall evaluation,decision-making process, review of diagnostic data, adjustment of management, discussion with other providers, nursing nursing and ancillary staff involved in patient's care documentation, 50 Minutes Charges/Coding Visit Charges Inpatient E&M: 02053 Subs Hosp L3
--- NOTE | 2022-11-15 07:47 | PCM.CONS.C ---
Assessment & Plan Assessment/Plan (1) Atrial fibrillation with rapid ventricular response: PLAN: He presents with new onset atrial fibrillation with rapid ventricular response rate. My suspicion is that this is due to holiday heart and alcohol. Will recommend control with intravenous diltiazem Add carvedilol Continue intravenous heparin for now but ultimately does not need long-term anticoagulation. His [id number] score is 1. (2) Hypertension: PLAN: He appears to be rather hypertensive. The plan would be to start him on carvedilol and titrate upwards as appropriate quickly and add an PATRICIA inhibitor as well as spironolactone. (3) CHF (congestive heart failure), NYHA class III: PLAN: He will have an echocardiogram performed today. My suspicion is that he does have a significant cardiomyopathy. Will recommend guideline directed medical therapy with carvedilol Add PATRICIA inhibitor or ARB and eventually switch to ARNI Spironolactone 25 mg a day Intravenous Lasix We will add an SGLT2 inhibitor (4) Pleural effusion, right: PLAN: He does have a large right pleural effusion. I suspect that the above is likely transudative from his increased right-sided pressures. He may need thoracentesis for relief of symptoms. HPI Consult Data Date of Consult: 11/15/22 HPI Narrative HPI Narrative: MIKEY PHILIP, is a 47 M who presents to the emergency room complaining of shortness of breath pedal edema as well as palpitations. The shortness of breath has been worsening over the last 4 to 5 months his activity level has decreased since the application back in July. He is also had these intermittent palpitations. He does have a history of hypertension and he also likes to drink a fair amount of beer drinking about 10 beers daily for the last 15 to 20 years and more so at the weekends. He denies any chest discomfort but he has some abdominal bloating and he has had some pedal edema. He has not had any syncopal episodes and does not have any previous cardiac disease though he has a strong family history of coronary disease. In the emergency room he was noted to be in atrial fibrillation with a rapid ventricular response rate and also had a large right pleural effusion. [facility] Medical History (Updated 11/15/22 @ 07:[address] Daniel Cabrera MD) Hypertension Home Medications NK 11/14/22 [History Last Taken Unknown] Allergy/AdvReac Type Severity Reaction Status Date / Time No Known Allergies Allergy Verified 11/14/22 13:28 Family History Father Colon cancer Mother Diabetes Surgical History History of foot surgery Social History Smoking Status: Never smoker alcohol intake: never ROS Constitutional Constitutional: Denies fever(s) or weight loss Eyes Eyes: Reports systems reviewed and no addt'l complaints, except as documented ENT HEENT: Reports systems reviewed and no addt'l complaints, except as documented Cardiovascular Cardiovascular: Reports dyspnea at rest, dyspnea on exertion, palpitations and paroxysmal nocturnal dyspnea; Denies chest pain at rest, chest pain with activity or edema Respiratory/Chest Respiratory/Chest: Reports dyspnea on exertion, shortness of breath at rest and shortness of breath with exertion; Denies productive cough Gastrointestinal Gastrointestinal: Denies change in bowel habits, nausea, vomiting or weight changes Genitourinary Genitourinary: Denies difficulty urinating Musculoskeletal Musculoskeletal: Denies joint stiffness or muscle weakness Integumentary Integumentary: Denies lesions Neurologic Neurologic: Denies dizziness or syncope Psychiatric Psychiatric: Denies anxiety Endocrine Endocrinology: Denies excessive sweating or fatigue Hematologic/Lymphatic Hematologic/Lymphatic: Denies anemia Allergic/Immunologic Allergic/Immunologic: Denies seasonal rhinorrhea Physical Exam Const alert, oriented x3 and no apparent distress General Appearance: cooperative HEENT hearing grossly normal bilaterally Head and Scalp: atraumatic Eyes EOMs intact bilaterally Neck General: normal visual inspection Chest inspection of chest normal and palpation of chest normal Resp normal respiratory effort Auscultation: diminished lung sounds right Cardio S1 normal heart sound and S2 normal heart sound Jugular Venous Distention: JVD Rhythm: abnormal rhythm irregularly irregular GI normal to inspection, nondistended, normoactive bowel sounds Extremity normal capillary refill General Extremity: edema bilateral Peripheral Pulses: Yes pulses 2+ throughout and femoral pulses present Skin no rashes or lesions noted Neuro oriented x3 and CN's II-XII intact bilaterally Psych Appearance: grossly normal and appropriate Risk Stratification Risk Stratification Applicable: No Objective Data Vital Signs: Vital Signs Temp Pulse Resp BP Pulse Ox O2 Del Method 98.1 F 69 17 109/81 H 96 Room Air 11/15/22 00:05 11/15/22 06:00 11/15/22 06:00 11/15/22 06:00 11/15/22 06:00 11/15/22 06:00 Oxygen Delivery Method Room Air Weight: 247 lb 9.266 oz Body Mass Index (BMI) 30.9 Intake & Output: Intake and Output for Last 24 Hours 11/13/22 11/14/22 11/15/22 23:59 23:59 23:59 Intake Total 160.77 / 160.77 Balance 160.77 / 160.77 Lab / Micro Data 11/14/22 13:35 11/14/22 13:35 Labs: Laboratory Results - last 24 hr 11/14/22 13:35: WBC 6.0, RBC 4.76, Hgb 14.1, Hct 42.9, MCV 90.1, MCH 29.6, MCHC 32.9, RDW Std Deviation 46.2 H, RDW Coeff of Hannah 13.8, Plt Count 145 L, MPV 9.9, Immature Gran % (Auto) 0.200, Neut % (Auto) 71.9 H, Lymph % (Auto) 18.1 L, [place] % (Auto) 8.7, Eos % (Auto) 0.8, Baso % (Auto) 0.3, Absolute Neuts (auto) 4.3, Absolute Lymphs (auto) 1.08, Nucleated RBC % 0, Sodium 142, Potassium 3.6, Chloride 109 H, Carbon Dioxide 25.0, Anion Gap 8, BUN 14, Creatinine 1.17, Est GFR (MDRD) Af Amer 86, Est GFR (MDRD) Non-Af 71, BUN/Creatinine Ratio 12.0, Glucose 89, Calcium 10.0, Troponin I High Sens 58, B-Natriuretic Peptide 480.2 H 11/14/22 14:39: D-Dimer Quant (PE/DVT) 3.01 H* 11/14/22 16:20: PT 16.5 H, INR 1.3, APTT 33.3 11/14/22 16:45: Hemoglobin A1c 5.0, Total Bilirubin 1.70 H, Direct Bilirubin 0.61 H, AST 32, ALT 31, Alkaline Phosphatase 81, Troponin I High Sens 66, Total Protein 7.1, Albumin 3.9, Globulin 3.2, Lipase 40, TSH 5.87 H 11/14/22 17:53: Total Bilirubin 1.70 H, Direct Bilirubin 0.57 H, AST 37, ALT 32, Alkaline Phosphatase 88, Total Protein 7.9, Albumin 4.4, Globulin 3.5, Triglycerides 86, Cholesterol 140, LDL Cholesterol 87, VLDL Cholesterol 17, HDL Cholesterol 36 L 11/14/22 22:51: APTT 106.6 H* Cardiology Labs/Tests 11/14/22 13:35: WBC 6.0, RBC 4.76, Hgb 14.1, Hct 42.9, MCV 90.1, MCH 29.6, MCHC 32.9, Plt Count 145 L, MPV 9.9, Immature Gran % (Auto) 0.200, Neut % (Auto) 71.9 H, Lymph % (Auto) 18.1 L, [place] % (Auto) 8.7, Eos % (Auto) 0.8, Baso % (Auto) 0.3, Absolute Neuts (auto) 4.3, Nucleated RBC % 0, Sodium 142, Potassium 3.6, Chloride 109 H, Carbon Dioxide 25.0, Anion Gap 8, BUN 14, Creatinine 1.17, Est GFR (MDRD) Af Amer 86, Est GFR (MDRD) Non-Af 71, BUN/Creatinine Ratio 12.0, Glucose 89, Calcium 10.0, B-Natriuretic Peptide 480.2 H 11/14/22 14:39: D-Dimer Quant (PE/DVT) 3.01 H* 11/14/22 16:20: PT 16.5 H, INR 1.3, APTT 33.3 11/14/22 16:45: Hemoglobin A1c 5.0, Total Bilirubin 1.70 H, Direct Bilirubin 0.61 H 11/14/22 17:53: Total Bilirubin 1.70 H, Direct Bilirubin 0.57 H, Triglycerides 86, Cholesterol 140, LDL Cholesterol 87, VLDL Cholesterol 17, HDL Cholesterol 36 L 11/14/22 22:51: APTT 106.6 H* Rhythm: EKG: ECHO: Stress Test: Cardiac Cath: PCI: CT Surgery: Holter monitor: EPS: PPM: CXR: Chest CT Scan: Radiography Diagnostic Testing: Radiology Impression Chest X-Ray 11/14/22 14:01 IMPRESSION: Moderate right pleural effusion with right basilar atelectasis and/or infiltrate. Electronically Signed: Charles Norton MD at 14:24 EDT , Chest CTA 11/14/22 15:06 IMPRESSION: Large right pleural effusion with consolidation of the right lower lobe and dependent portion of the right upper lobe. No evidence for pulmonary embolus. Electronically Signed: Dwayne Palm MD at 16:18 EDT , Abdomen/Pelvis CT 11/14/22 15:40 IMPRESSION: Diffuse diverticular disease of the colon without evidence for acute diverticulitis Findings consistent with portal hypertension with extensive ascites and mesenteric edema. Large right pleural effusion with consolidation of the right lower lobe Incidental rim calcified density in the right lobe of the liver of uncertain etiology. MRI would be useful for more definitive evaluation if clinically warranted Thick-walled gallbladder without calcified stones. If concern for gallbladder disease ultrasound recommended. Multiple other findings as above Electronically Signed: Dwayne Palm MD at 16:15 EDT ,
[2022-11-15 08:56] LABS: Absolute Neutrophil Count 3.7 X10^3/uL (2.0-7.7); Basophil# 0.03 X10^3/uL; Basophil% 0.5 % (0-1); Eosinophil# 0.06 X10^3/uL; Eosinophils% 1.1 % (0-5); Hematocrit 41.9 % (40-54); Hemoglobin 13.6 g/dL (13.0-16.5); Lymphocyte % 21.9 % (19-41); Mean Corp Hgb Conc 32.5 g/dL (32-36); Mean Corpuscular Hgb 28.9 pg (27.0-32.0); Mean Platelet Vol. 9.8 fl (6.2-12.0); Monocyte# 0.46 X10^3/uL; Monocyte% 8.4 % (0-10); NRBC Flagged by Analyzer 0 % (0-5); Neutrophil # 3.71 X10^3/uL (2.7-7.7); Neutrophil % 67.7 % (47-70); Platelet Count 157 K/mm3 (150-450); RBC Distribution Width CV 13.8 % (11.6-14.6); RBC Distribution Width SD 44.9 fl (35.1-43.9); Red Blood Count 4.71 M/mm3 (4.6-6.2); White Blood Count 5.5 K/mm3 (4.4-11.0)
[2022-11-15 09:14] LABS: Partial Thromboplast Time 87.1 Seconds (24.1-36.2)
--- NOTE | 2022-11-15 09:20 | US_ITS ---
PROCEDURE: ULTRASOUND GUIDED THORACENTESIS. DATE: November 15, 2022.. INDICATION: Male, 47 years old. Right pleural effusion. PHYSICIAN: Charles Norton M.D. PROCEDURE: The risks, benefits, and alternatives to the procedure were explained to the patient. The specific risks of bleeding, infection, and pneumothorax requiring chest tube insertion were discussed and accepted. Written informed consent was obtained. Ultrasonographic evaluation of the right lower pleural space was carried out. An adequate pocket was identified. The patient was placed in the sitting, upright position. The overlying skin was prepped and draped in sterile fashion. 1% lidocaine was administered subcutaneously for local anesthesia. Under ultrasound guidance, a 5 [place] thoracentesis needle/catheter system was advanced into the right posterior lower pleural fluid collection. Approximately 2190 mL of susan-colored fluid was drained. The catheter was removed, and a sterile dressing was applied. A specimen was collected and sent to the laboratory for analysis, as requested by the referring clinician. The patient tolerated the procedure well. A chest x-ray was ordered. US/Thoracentesis W US IMPRESSION: Ultrasound-guided right thoracentesis. Electronically Signed: Charles Norton MD at 12:16 EDT ,
[2022-11-15] MEDS: Spironolactone 25 MG Tablet PO (09:46)
[2022-11-15] MEDS: Carvedilol 6.25 MG Tablet PO ×2 (09:47→21:56)
[2022-11-15] MEDS: 0.9% Saline Lock 10 ML Syringe IV (09:48)
[2022-11-15 10:16] LABS: Anion Gap 8 (5-15); BUN 11 mg/dL (7-18); BUN/Creat Ratio 10.6 RATIO (10-20); Calcium,Total 10.1 mg/dL (8.5-10.1); Chloride 104 mmol/L (98-107); Creatinine, Serum 1.04 mg/dL (0.70-1.30); EST Glomerular Filtration Rate 82 mL/min (>60); Est Glom Filt Rate - Afr Amer 99 mL/min (>60); Estimated Creatinine Clearance 106.08 ml/min; Glucose 91 mg/dL (74-106); Magnesium 1.7 mg/dL (1.6-2.6); Potassium 3.1 mmol/L (3.5-5.1); Sodium Level 140 mmol/L (136-145)
--- NOTE | 2022-11-15 10:21 | US_ITS ---
STUDY: ABDOMINAL ULTRASOUND -ascites survey. REASON FOR VISIT: Male, 47 years old cirrhosis TECHNIQUE: Ultrasound evaluation of the 4 quadrants was performed with real-time and static gonzales-scale imaging. TECHNICAL QUALITY: Adequate. COMPARISON: None. FINDINGS: A small pocket of free fluid is seen in the right lower quadrant. US/Abdomen Limited IMPRESSION: Small pocket of free fluid is seen in the right lower quadrant. Electronically Signed: Charles Norton MD at 12:28 EDT ,
[2022-11-15] MEDS: Lidocaine 2% (20 ml mdv) 20 ML Vial INFILT (10:42)
--- NOTE | 2022-11-15 10:50 | RAD_ITS ---
STUDY: X-RAY CHEST REASON FOR EXAM: Male, 47 years old. Immediately post thoracentesis TECHNIQUE: AP inspiration and expiration views. COMPARISON: Comparison is made with prior study November 14, 2022. FINDINGS: The patient is status post right thoracentesis. Mild residual pleural-parenchymal changes persist at the right lung base. No evidence of pneumothorax. RAD/Chest Insp/Exp 2 View IMPRESSION: Status post right thoracentesis. No evidence of pneumothorax. Residual pleural parenchymal changes at the right lung base. Electronically Signed: Charles Norton MD at 12:36 EDT ,
[2022-11-15 12:07] LABS: Ferritin 125 ng/mL (26-388); Iron 99 ug/dL (65-175); Iron Binding Capacity,Total 533 ug/dL (250-450); PERCENT IRON SATURATION 18.6 % (15.0-55.0)
[2022-11-15 14:08] LABS: Glucose, Body Fluid 95 mg/dL (40-70); LDH,Body Fluid 102 Units/L (Not Establ.); Protein, Body Fluid 3.8 g/dL (Not Establ.)
--- NOTE | 2022-11-15 14:25 | CASEMGMT ---
TABITHA ARMAS Discharge Planning Assessment: Face to Face with patient for initial transition planning/care coordination assessment.?ATBITHA ARMAS introduced self and role at [facility], pt alert, oriented and voices understanding. Care providers, pharmacy,?and demographics verified. ? Admitting dx: Afib RVR, Rt Pl effusion PCP: Phoebe Carvalho NP at [facility] Specialists: none Preferred Pharmacy: [facility] Insurance: [employer] Prescription Benefit: yes? Living Will/HPOA: none LNOK: [place] Living Arrangements: Pt lives with his in a two story home. Pt denies any difficulty managing the steps. Pt states he is independent with ADLs including self care and household tasks. Transportation: pt drives and denies any concerns with transportation DME/HHC/SNF: Pt denies ? Pt's goal/plan: return home with the support of his . Pt denies any discharge needs at this time. Will monitor for any anticoagulation or other needs at discharge. Vashti Raza RN CM
[2022-11-15 17:40] LABS: Auto B Fluid Analyzer BKGD Ct COUNTS W/IN LIMITS (W/IN LIMITS)
[2022-11-15 17:41] LABS: Appearance/Body Fluid CLEAR; Color/Body Fluid YELLOW; Source- Body Fluid OTHER
[2022-11-15 17:45] LABS: Red Cell Count/Body Fluid 49 /mm3
[2022-11-15 17:46] LABS: Body Fluid Mononuclear WBC # 0.224 10^3/uL; White Blood Count/Body Fluid 0.249 10^3/uL
[2022-11-15] MEDS: Magnesium Sulfate 2 GM in Dextrose 5%-Water (100mL Bag) 100 ML IV (17:53)
[2022-11-15] MEDS: Potassium Chloride Oral Tablet 20 MEQ 40 MEQ PO (17:54)
[2022-11-15 18:29] LABS: Body Fluid QC Type(s) BF1Q; Lymphocytes 10 %; Monocytes 80 %; Neutrophil (Segs) 10 %
--- NOTE | 2022-11-15 18:56 | EX.PCM.CON.G ---
HPI Consult Data Date of Consult: 11/15/22 HPI Narrative Reason for Consultation: Ascites HPI Narrative: MIKEY PHILIP, is a 47 M who presents with worsening shortness of breath. Patient sitting up in bed, conversing normally, in no acute distress. Patient states that he has had worsening shortness of breath over the last 4 to 5 months. States he first noticed his decrease in activity level and shortness of breath with exertion during his beach vacation back in July. Since that time, he has intermittently felt palpitations. He has noticed that his legs and abdomen have progressively become more swollen over that time. States that with regards to his breathing, he has no shortness of breath at rest but with exertion, feels like he has 1 functioning lung and has a very difficult time catching his breath. Patient has history of diagnosed hypertension but is not on any home medications at this time. He reports drinking 10 beers daily for about 15 to 20 years, with about 15-20 beers daily on the weekends. He has been drinking significantly less over the last 4 to 5 months since his symptoms started. He recently went 2 weeks without drinking any alcohol. Has no history of alcohol withdrawal. He otherwise denies any fevers or chills. Denies any abdominal pain or discomfort. No other acute concerns. Vitals in ED notable for heart rate around 110, mild hypertension, satting in mid 90s on room air. Labs notable for WBC count 6, hemoglobin 14, platelets 145, sodium 142, potassium 3.6, BUN 14, creatinine 1.17, total bilirubin 1.7, direct bili 0.6, otherwise normal LFTs, BNP 480. EKG showed A-fib with RVR with heart rate 140, no significant ST changes. Chest x-ray and CTA chest showed large right pleural effusion with consolidation of right lower lobe and dependent portion of right upper lobe, no PE noted, no masses noted. CT abdomen pelvis on admit showed findings consistent with portal hypertension with extensive ascites and mesenteric edema, thick-walled gallbladder without calcified stones. He had an echocardiogram today: The left ventricular ejection fraction is 25 %. Mildly dilated left ventricle. Moderate concentric left ventricular hypertrophy. There is severe global hypokinesis of the left ventricle. Pulmonary artery systolic pressure is 45 mmHg. Biatrial enlargement He also underwent large-volume thoracentesis 2.1L today after his ultrasound of the abdomen pelvis did not show any significant fluid in his abdomen. The fluid from his thoracentesis was consistent with a transudate of fluid. Cytology and cultures pending. [facility] Medical History (Updated 11/15/22 @ 19:[address] Hill Friend, DO) Hypertension Home Medications NK 11/14/22 [History Last Taken Unknown] Allergy/AdvReac Type Severity Reaction Status Date / Time No Known Allergies Allergy Verified 11/14/22 13:28 Family History Father Colon cancer Mother Diabetes Surgical History History of foot surgery Social History Smoking Status: Never smoker alcohol intake: never ROS Constitutional Constitutional: Denies fever(s) or weight loss Eyes Eyes: Reports systems reviewed and no addt'l complaints, except as documented ENT HEENT: Reports systems reviewed and no addt'l complaints, except as documented Cardiovascular Cardiovascular: Reports dyspnea at rest, dyspnea on exertion, palpitations and paroxysmal nocturnal dyspnea; Denies chest pain at rest, chest pain with activity or edema Respiratory/Chest Respiratory/Chest: Reports dyspnea on exertion, shortness of breath at rest and shortness of breath with exertion; Denies productive cough Gastrointestinal Gastrointestinal: Denies change in bowel habits, nausea, vomiting or weight changes Genitourinary Genitourinary: Denies difficulty urinating Musculoskeletal Musculoskeletal: Denies joint stiffness or muscle weakness Integumentary Integumentary: Denies lesions Neurologic Neurologic: Denies dizziness or syncope Psychiatric Psychiatric: Denies anxiety Endocrine Endocrinology: Denies excessive sweating or fatigue Hematologic/Lymphatic Hematologic/Lymphatic: Denies anemia Allergic/Immunologic Allergic/Immunologic: Denies seasonal rhinorrhea Physical Exam Const alert, oriented x3 and no apparent distress General Appearance: cooperative HEENT hearing grossly normal bilaterally Head and Scalp: atraumatic Eyes EOMs intact bilaterally Neck General: normal visual inspection Chest inspection of chest normal and palpation of chest normal Resp normal respiratory effort Auscultation: diminished lung sounds right Cardio S1 normal heart sound and S2 normal heart sound Jugular Venous Distention: JVD Rhythm: abnormal rhythm irregularly irregular GI normal to inspection, nondistended, normoactive bowel sounds Extremity normal capillary refill General Extremity: edema bilateral Peripheral Pulses: Yes pulses 2+ throughout and femoral pulses present Skin no rashes or lesions noted Neuro oriented x3 and CN's II-XII intact bilaterally Psych Appearance: grossly normal and appropriate Lab / Micro Data 11/15/22 08:33 11/15/22 08:33 Labs: Laboratory Results - last 24 hr 11/14/22 17:53: Total Bilirubin 1.70 H, Direct Bilirubin 0.57 H, AST 37, ALT 32, Alkaline Phosphatase 88, Total Protein 7.9, Albumin 4.4, Globulin 3.5, Triglycerides 86, Cholesterol 140, LDL Cholesterol 87, VLDL Cholesterol 17, HDL Cholesterol 36 L 11/14/22 22:51: APTT 106.6 H* 11/15/22 08:33: WBC 5.5, RBC 4.71, Hgb 13.6, Hct 41.9, MCV 89.0, MCH 28.9, MCHC 32.5, RDW Std Deviation 44.9 H, RDW Coeff of Hannah 13.8, Plt Count 157, MPV 9.8, Immature Gran % (Auto) 0.400, Neut % (Auto) 67.7, Lymph % (Auto) 21.9, [place] % (Auto) 8.4, Eos % (Auto) 1.1, Baso % (Auto) 0.5, Absolute Neuts (auto) 3.7, Absolute Lymphs (auto) 1.20, Nucleated RBC % 0, APTT 87.1 H, Sodium 140, Potassium 3.1 L, Chloride 104, Carbon Dioxide 28.0, Anion Gap 8, BUN 11, Creatinine 1.04, Estim Creat Clear Calc 106.08, Est GFR (MDRD) Af Amer 99, Est GFR (MDRD) Non-Af 82, BUN/Creatinine Ratio 10.6, Glucose 91, Calcium 10.1, Magnesium 1.7, Iron 99, TIBC 533 H, Iron Saturation 18.6, Ferritin 125 11/15/22 11:03: Fluid Source OTHER, Fluid Color YELLOW, Fluid Appearance CLEAR, Fluid WBC 0.249, Fluid RBC 49, Fluid Tot Cell Count 0.330, Fld Polynuclear WBCs # 90.000, Fld Polynuclear WBCs % 0.0, Fluid Mononuclear WBCs 0.224, Fld Mononuclear WBCs % 10.0, Fluid Neutrophils 10, Fluid Lymphocytes 10, Fluid Monocytes 80, Fl Pathologist Comment May follow, Fluid Glucose 95 H 11/15/22 11:03: Fluid Glucose Cancelled, Fluid Total Protein 3.8 11/15/22 11:03: Fluid Total Protein Cancelled, Fluid LDH 102 11/15/22 11:03: Fluid LDH Cancelled, Fluid Comment 2 SEE COMMENT Radiology Impression Echocardiogram 11/14/22 17:53 Interpretation Summary The left ventricular ejection fraction is 25 %. Mildly dilated left ventricle. Moderate concentric left ventricular hypertrophy. There is severe global hypokinesis of the left ventricle. Pulmonary artery systolic pressure is 45 mmHg. Biatrial enlargement Ordering Physician: Drew Ghotra Referring Physician: Phoebe Carvalho Performed By: Lexis Sanchez RDCS, RVT Thoracentesis Ultrasound 11/15/22 09:20 IMPRESSION: Ultrasound-guided right thoracentesis. Electronically Signed: Charles Norton MD at 12:16 EDT , Abdomen Ultrasound 11/15/22 10:21 IMPRESSION: Small pocket of free fluid is seen in the right lower quadrant. Electronically Signed: Charles Norton MD at 12:28 EDT , Chest X-Ray 11/15/22 10:50 IMPRESSION: Status post right thoracentesis. No evidence of pneumothorax. Residual pleural parenchymal changes at the right lung base. Electronically Signed: Charles Norton MD at 12:36 EDT , Assessment & Plan Assessment/Plan (1) Hydrothorax: PLAN: The most common pulmonary complications of chronic liver disease are hepatic hydrothorax, hepatopulmonary syndrome, and portopulmonary hypertension. Hepatic hydrothorax is a transudative pleural effusion in a patient with cirrhosis and no evidence of underlying cardiopulmonary disease. Hepatic hydrothorax develops owing to the movement of ascitic fluid into the pleural space. Hepatopulmonary syndrome and portopulmonary hypertension are pathologically linked by the presence of portal hypertension; however, their pathophysiologic mechanisms are significantly different. Hepatopulmonary syndrome is characterized by low pulmonary vascular resistance secondary to intrapulmonary vascular dilatations and hypoxemia; portopulmonary hypertension features elevated pulmonary vascular resistance and constriction/obstruction within the pulmonary vasculature. He has a significant cardiomyopathy that is likely secondary to alcohol. I am not sure if the transudative fluid in his lung is secondary to portal hypertension from his liver or secondary to cardiopulmonary disease. He is on diuretic therapy which should significantly help his reaccumulation of fluid into his lungs. He will need to undergo a liver biopsy to see if he has macrovascular steatosis with portal damage versus cirrhosis with portal damage. As he can get better and regarding his liver if he stops drinking and he does not have cirrhosis. Typically in merlyn hypertension the?PA systolic pressure of >50 mm Hg on echocardiogram or signs of significant right heart dysfunction predicted the presence of portopulmonary hypertension 100% of the time. His PASP was calculated at 45. (2) Alcoholic liver damage: PLAN: He will have a liver biopsy tomorrow so we can see if there is any significant liver damage secondary to alcohol as it is pretty classical liver biopsy. Looking at his biochemical profile he does not have an elevated INR, decreased platelet count, elevated AST and ALT ratio greater than 1 which would make me think he has significant liver disease. Because he does have what appears to be significant liver injury with portal hypertension I send off autoimmune work-up, a viral work-up for liver disease including alpha-1 antitrypsin disease, Cedric's disease, autoimmune hepatitis, hemochromatosis and infiltrative diseases that affect the liver including sarcoidosis, amyloidosis. (3) Gilbert disease: PLAN: I think his elevated indirect bilirubinemia is secondary to Guilbert's disease and unlikely secondary to other underlying liver disease. Charges/Coding Visit Charges Inpatient E&M: 27974 Init Hosp L3
[2022-11-16] VITALS (15 sets, daily range): BP systolic 81–133; BP diastolic 66–117; PULSE 52–128; RESP 15–28; TEMP 36.4–36.8; O2SAT 93–98; BMI 31.1
--- NOTE | 2022-11-16 | LIVB_PTH ---
PATIENT: MIKEY PHILIP LOC: [facility] U#:[id number] AGE/SX: 47/M ROOM: [facility] RE11/14/[address]: Dr. Kris Vásquez MD : [id number] BED: 1 DIS: 11/17/2022 SPEC #: [id number] RECD: 11/16/22 13:28 STATUS: MEHRDAD REMason #: [id number] JACQUE: 11/16/22 00:[address]: Sergio Gray DEPT: SURGICAL PATHOLOGY RECD BY: Darrick Bynum ENTERED: 11/16/22 13:45 SP TYPE: LIVER BX OTHR DR: DO Dr. Daniel Sanches MD Dr. David Kittoe, MD Dr. Gabriele Pedicelli, MD Elizabeth Steiner, KEY RINGER-C Tissues: Liver, NOS Procedures: PAS with Diastase (control) Trichrome (control) Special Stain Group II PAS Stain (control) Surgery Specimen Level V Retic (control) Iron Stain (control) Comments: @ Ordering doctor for SUV edited from to @ by RGOOD at 11/16/22 153 @ Submitting doctor edited from to @ by RGOOD at 11/16/22 1530 HEADER OPERATION: Liver biopsy PRE-OP DIAGNOSIS: Severe portal hypertension TISSUE SUBMITTED: Liver 18-gauge x3 cores MICROSCOPIC DIAGNOSIS Liver, core biopsy: Cirrhosis. See microscopic description and comment. SJ:shiv 11/17/2022 COMMENT Clinical correlation and appropriate follow up are necessary. MICROSCOPIC DESCRIPTION Slides are reviewed. The specimen shows liver parenchymal tissue with distortion of normal architecture into multiple variable sized nodules divided by fibrous septae. Hepatocytes in the nodules show reactive changes. Focal mild nodular inflammation is noted. Fibrous septae in between the nodules show mild to moderate chronic inflammation. Interface inflammation is also noted. Iron stain shows absent iron. Trichrome and reticulin stain highlights the fibrous septae. PAS stain with and without diastase does not show any abnormal accumulation of protein. All stains are performed with appropriate matched controls. GROSS DESCRIPTION Received is one container labeled with the patient's name and not further designated. The specimen consists of three elongated fragments of iraheta soft tissue each measuring 2.0 cm in length and 0.1 cm in diameter. The specimen is totally submitted in one cassette. / JAY:shiv 11/16/2022 TC:5 CPT: 02870, 92960 x5
[2022-11-16 06:25] LABS: Absolute Lymphocyte Count 1.04 X10^3/uL (0.83-4.51); Absolute Neutrophil Count 3.6 X10^3/uL (2.0-7.7); Basophil# 0.01 X10^3/uL; Basophil% 0.2 % (0-1); Eosinophil# 0.06 X10^3/uL; Eosinophils% 1.1 % (0-5); Hematocrit 38.5 % (40-54); Hemoglobin 12.5 g/dL (13.0-16.5); Lymphocyte # 1.04 X10^3/ul (0.83-4.51); Lymphocyte % 19.9 % (19-41); Mean Corp Hgb Conc 32.5 g/dL (32-36); Mean Corpuscular Hgb 28.6 pg (27.0-32.0); Mean Corpuscular Volume 88.1 fL (80-94); Mean Platelet Vol. 9.9 fl (6.2-12.0); Monocyte# 0.54 X10^3/uL; Monocyte% 10.3 % (0-10); NRBC Flagged by Analyzer 0 % (0-5); Neutrophil # 3.56 X10^3/uL (2.7-7.7); Neutrophil % 68.3 % (47-70); Platelet Count 147 K/mm3 (150-450); RBC Distribution Width CV 13.5 % (11.6-14.6); RBC Distribution Width SD 43.9 fl (35.1-43.9); Red Blood Count 4.37 M/mm3 (4.6-6.2); White Blood Count 5.2 K/mm3 (4.4-11.0)
[2022-11-16 07:09] LABS: AST(SGOT) 27 U/L (15-37); Alanine Aminotransfer ALT/SGPT 23 U/L (16-61); Albumin, Serum 3.2 g/dL (3.2-5.0); Alkaline Phosphatase 68 U/L (45-117); Anion Gap 7 (5-15); BUN 14 mg/dL (7-18); BUN/Creat Ratio 14.2 RATIO (10-20); Bilirubin, Direct 0.49 mg/dL (0.00-0.30); Calcium,Total 8.8 mg/dL (8.5-10.1); Chloride 104 mmol/L (98-107); Creatinine, Serum 0.99 mg/dL (0.70-1.30); EST Glomerular Filtration Rate 86 mL/min (>60); Est Glom Filt Rate - Afr Amer 104 mL/min (>60); Estimated Creatinine Clearance 111.43 ml/min; Globulin 2.9 g/dL (2.2-4.2); Glucose 86 mg/dL (74-106); Potassium 3.2 mmol/L (3.5-5.1); Protein, Total 6.1 g/dL (6.4-8.2); Sodium Level 139 mmol/L (136-145)
--- NOTE | 2022-11-16 07:54 | PN.CARD_ITS ---
Subjective Subjective Patient seen and evaluated. Appears to be doing much better. Underwent thoracentesis yesterday. Objective Data Vital Signs: Vital Signs Temp Pulse Resp BP Pulse Ox O2 Del Method 98.2 F 52 L 16 102/74 93 Room Air 11/16/22 03:30 11/16/22 03:30 11/16/22 03:30 11/16/22 03:30 11/16/22 03:30 11/16/22 03:30 Oxygen Delivery Method [4] Room Air Oxygen Delivery Method [3] Room Air Oxygen Delivery Method [2] Room Air Oxygen Delivery Method [1 ( Room Air Initial Baseline)] Oxygen Delivery Method Room Air Weight: 249 lb 9.012 oz Body Mass Index (BMI) 31.1 Intake & Output: Intake and Output for Last 24 Hours 11/14/22 11/15/22 11/16/22 23:59 23:59 23:59 Intake Total 160.77 / 160.77 970.15 / 1620.15 650 / 650 Output Total 2190 / 4380 2190 / 2190 Balance 160.77 / 160.77 -1219.85 / -2759.85 -1540 / -1540 Lab / Micro Data 11/16/22 05:44 11/16/22 05:44 Labs: Laboratory Results - last 24 hr 11/15/22 08:33: WBC 5.5, RBC 4.71, Hgb 13.6, Hct 41.9, MCV 89.0, MCH 28.9, MCHC 32.5, RDW Std Deviation 44.9 H, RDW Coeff of Hannah 13.8, Plt Count 157, MPV 9.8, Immature Gran % (Auto) 0.400, Neut % (Auto) 67.7, Lymph % (Auto) 21.9, Churchill % (Auto) 8.4, Eos % (Auto) 1.1, Baso % (Auto) 0.5, Absolute Neuts (auto) 3.7, Ab solute Lymphs (auto) 1.20, Nucleated RBC % 0, APTT 87.1 H, Sodium 140, Potassium 3.1 L, Chloride 104, Carbon Dioxide 28.0, Anion Gap 8, BUN 11, Creatinine 1.04, Estim Creat Clear Calc 106.08, Est GFR (MDRD) Af Amer 99, Est GFR (MDRD) Non-Af 82, BUN/Creatinine Ratio 10.6, Glucose 91, Calcium 10.1, Magnesium 1.7, Iron 99, TIBC 533 H, Iron Saturation 18.6, Ferritin 125 11/15/22 11:03: Fluid Source OTHER, Fluid Color YELLOW, Fluid Appearance CLEAR, Fluid WBC 0.249, Fluid RBC 49, Fluid Tot Cell Count 0.330, Fld Polynuclear WBCs # 90.000, Fld Polynuclear WBCs % 0.0, Fluid Mononuclear WBCs 0.224, Fld Mononuc lear WBCs % 10.0, Fluid Neutrophils 10, Fluid Lymphocytes 10, Fluid Monocytes 80, Fl Pathologist Comment May follow, Fluid Glucose 95 H 11/15/22 11:03: Fluid Glucose Cancelled, Fluid Total Protein 3.8 11/15/22 11:03: Fluid Total Protein Cancelled, Fluid LDH 102 11/15/22 11:03: Fluid LDH Cancelled, Fluid Comment 2 SEE COMMENT 11/16/22 05:44: WBC 5.2, RBC 4.37 L, Hgb 12.5 L, Hct 38.5 L, MCV 88.1, MCH 28.6, MCHC 32.5, RDW Std Deviation 43.9, RDW Coeff of Hannah 13.5, Plt Count 147 L, MPV 9.9, Immature Gran % (Auto) 0.200, Neut % (Auto) 68.3, Lymph % (Auto) 19.9, Churchill % (Auto) 10.3 H, Eos % (Auto) 1.1, Baso % (Auto) 0.2, Absolute Neuts (auto) 3.6, Absolute Lymphs (auto) 1.04, Nucleated RBC % 0, Sodium 139, Potassium 3.2 L, Chloride 104, Carbon Dioxide 28.0, Anion Gap 7, BUN 14, Creatinine 0.99, Estim Creat Clear Calc 111.43, Est GFR (MDRD) Af Amer 104, Est GFR (MDRD) Non-Af 86, BUN/Creatinine Ratio 14.2, Glucose 86, Calcium 8.8, Total Bilirubin 1.40 H, Direct Bilirubin 0.49 H, AST 27, ALT 23, Alkaline Phosphatase 68, Total Protein 6.1 L, Albumin 3.2, Globulin 2.9 Cardiology Labs/Tests 11/15/22 08:33: WBC 5.5, RBC 4.71, Hgb 13.6, Hct 41.9, MCV 89.0, MCH 28.9, MCHC 32.5, Plt Count 157, MPV 9.8, Immature Gran % (Auto) 0.400, Neut % (Auto) 67.7, Lymph % (Auto) 21.9, Churchill % (Auto) 8.4, Eos % (Auto) 1.1, Baso % (Auto) 0.5, Absolute Neuts (auto) 3.7, Nucleated RBC % 0, APTT 87.1 H, Sodium 140, Potassium 3.1 L, Chloride 104, Carbon Dioxide 28.0, Anion Gap 8, BUN 11, Creatinine 1.04, Est GFR (MDRD) Af Amer 99, Est GFR (MDRD) Non-Af 82, BUN/Creatinine Ratio 10.6, Glucose 91, Calcium 10.1, Magnesium 1.7, Iron 99, TIBC 533 H, Iron Saturation 18.6, Ferritin 125 11/16/22 05:44: WBC 5.2, RBC 4.37 L, Hgb 12.5 L, Hct 38.5 L, MCV 88.1, MCH 28.6, MCHC 32.5, Plt Count 147 L, MPV 9.9, Immature Gran % (Auto) 0.200, Neut % (Auto) 68.3, Lymph % (Auto) 19.9, Churchill % (Auto) 10.3 H, Eos % (Auto) 1.1, Baso % (Auto) 0.2, Absolute Neuts (auto) 3.6, Nucleated RBC % 0, Sodium 139, Potassium 3.2 L, Chloride 104, Carbon Dioxide 28.0, Anion Gap 7, BUN 14, Creatinine 0.99, Est GFR (MDRD) Af Amer 104, Est GFR (MDRD) Non-Af 86, BUN/Creatinine Ratio 14.2, Glucose 86, Calcium 8.8, Total Bilirubin 1.40 H, Direct Bilirubin 0.49 H Rhythm: EKG: ECHO: Stress Test: Cardiac Cath: PCI: CT Surgery: Holter monitor: EPS: PPM: CXR: Chest CT Scan: Radiography Diagnostic Testing: Radiology Impression Echocardiogram 11/14/22 17:53 Interpretation Summary The left ventricular ejection fraction is 25 %. Mildly dilated left ventricle. Moderate concentric left ventricular hypertrophy. There is severe global hypokinesis of the left ventricle. Pulmonary artery systolic pressure is 45 mmHg. Biatrial enlargement Ordering Physician: Drew Ghotra Referring Physician: Phoebe Carvalho Performed By: Lexis Sanchez, RANDOLPH, RVT Thoracentesis Ultrasound 11/15/22 09:20 IMPRESSION: Ultrasound-guided right thoracentesis. Electronically Signed: Charles Norton MD at 12:16 EDT , Abdomen Ultrasound 11/15/22 10:21 IMPRESSION: Small pocket of free fluid is seen in the right lower quadrant. Electronically Signed: Charles Norton MD at 12:28 EDT , Chest X-Ray 11/15/22 10:50 IMPRESSION: Status post right thoracentesis. No evidence of pneumothorax. Residual pleural parenchymal changes at the right lung base. Electronically Signed: Charles Norton MD at 12:36 EDT , Physical Exam Const alert, oriented x3 and no apparent distress General Appearance: cooperative HEENT hearing grossly normal bilaterally Head and Scalp: atraumatic Eyes EOMs intact bilaterally Neck General: normal visual inspection Chest inspection of chest normal and palpation of chest normal Resp normal respiratory effort Auscultation: diminished lung sounds right Cardio S1 normal heart sound and S2 normal heart sound Jugular Venous Distention: JVD Rhythm: abnormal rhythm irregularly irregular GI normal to inspection, nondistended, normoactive bowel sounds Extremity normal capillary refill General Extremity: edema bilateral Peripheral Pulses: Yes pulses 2+ throughout and femoral pulses present Skin no rashes or lesions noted Neuro oriented x3 and CN's II-XII intact bilaterally Psych Appearance: grossly normal and appropriate Assessment & Plan Assessment/Plan (1) Atrial fibrillation with rapid ventricular response: PLAN: He presents with new onset atrial fibrillation with rapid ventricular response rate. My suspicion is that this is due to holiday heart and alcohol. * * Add carvedilol * His ventricular response rate appears to be controlled at this time. We will therefore continue the carvedilol. His [id number] score is 1 and I will hold off on any anticoagulation for now until his hepatic issues are sorted out as well. He may be considered for short-term Eliquis if he is going to need cardioversion for adventist of sinus rhythm. (2) Hypertension: PLAN: He appears to be rather hypertensive. The plan would be to start him on carvedilol and titrate upwards as appropriate quickly and add an PATRICIA inhibitor as well as spironolactone. (3) CHF (congestive heart failure), NYHA class III: PLAN: His echocardiogram demonstrated reduced left ventricular systolic function estimated at 40%. * Will recommend guideline directed medical therapy with carvedilol * Add PATRICIA inhibitor or ARB and eventually switch to ARNI * Spironolactone 25 mg a day * Intravenous Lasix to oral Lasix * We will add an SGLT2 inhibitor (4) Pleural effusion, right: PLAN: He appears to have had significant relief from his thoracentesis. My plan will be to continue oral diuretics for this.
--- NOTE | 2022-11-16 08:09 | CT_ITS ---
PROCEDURE: CT DIRECTED CORE LIVER BIOPSY INDICATION: Male, 47 years old. SEVERe PORTAL HYPERTENSION PHYSICIAN: Dr. Cierra Olivas CONSENT: Written informed consent was obtained having explained the risks, benefits and alternatives in detail with the patient who accepted the risks and agreed to proceed. Laboratory review and clinical assessment was performed. CONSCIOUS SEDATION PROTOCOL: The Drugs used were: 2 mg Versed, IV., and 50 mcg Fentanyl, IV. The sedation time was: 18 minutes. Conscious sedation was started at 1:02 PM and terminated at 1:20 PM. The conscious sedation protocol was independently monitored. RADIATION DOSAGE (If Supplied By Facility): CTDIvol = ( 23 ) mGy, DLP = ( 638.56 ) mGycm Individualized dose optimization techniques were used for this CT. TECHNIQUE: Using CT image guidance with image documentation, a suitable location in the left lobe of the liver was identified. Using an anterior approach, puncture of the liver was uneventful with an 18-gauge core needle system. 3, 18-gauge core samples were obtained, and submitted in formalin to the pathologist for further assessment. Followup CT scan revealed no distinct sequelae. CT/Biopsy/Inj or Needle Placement IMPRESSION: 1. CT directed core needle biopsy of the liver, using CT image guidance with image documentation as described. 2. Conscious Sedation protocol utilized with independent monitoring. Electronically Signed: Charles Norton MD at 13:49 EDT ,
--- NOTE | 2022-11-16 08:14 | PN.HOSP_ITS ---
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 Echo did demo nstrate EF of 25%. Objective Data Objective Data Vital Signs: Vital Signs Temp Pulse Resp BP Pulse Ox O2 Del Method 98.2 F 52 L 16 102/74 93 Room Air 11/16/22 03:30 11/16/22 03:30 11/16/22 03:30 11/16/22 03:30 11/16/22 03:30 11/16/22 03:30 Oxygen Delivery Method [4] Room Air Oxygen Delivery Method [3] Room Air Oxygen Delivery Method [2] Room Air Oxygen Delivery Method [1 ( Room Air Initial Baseline)] Oxygen Delivery Method Room Air Weight: 113.2 kg Body Mass Index (BMI) 31.1 Intake & Output: Intake and Output for Last 24 Hours 11/14/22 11/15/22 11/16/22 23:59 23:59 23:59 Intake Total 160.77 / 160.77 970.15 / 1620.15 650 / 650 Output Total 2190 / 4380 2190 / 2190 Balance 160.77 / 160.77 -1219.85 / -2759.85 -1540 / -1540 Lab / Micro Data 11/16/22 05:44 11/16/22 05:44 Labs: Laboratory Results - last 24 hr 11/15/22 08:33: WBC 5.5, RBC 4.71, Hgb 13.6, Hct 41.9, MCV 89.0, MCH 28.9, MCHC 32.5, RDW Std Deviation 44.9 H, RDW Coeff of Hannah 13.8, Plt Count 157, MPV 9.8, Immature Gran % (Auto) 0.400, Neut % (Auto) 67.7, Lymph % (Auto) 21.9, Ventura % ( Auto) 8.4, Eos % (Auto) 1.1, Baso % (Auto) 0.5, Absolute Neuts (auto) 3.7, Absolute Lymphs (auto) 1.20, Nucleated RBC % 0, APTT 87.1 H, Sodium 140, Potassium 3.1 L, Chloride 104, Carbon Dioxide 28.0, Anion Gap 8, BUN 11, Creatinine 1.04, Estim Creat Clear Calc 106.08, Est GFR (MDRD) Af Amer 99, Est GFR (MDRD) Non-Af 82, BUN/Creatinine Ratio 10.6, Glucose 91, Calcium 10.1, Magnesium 1.7, Iron 99, TIBC 533 H, Iron Saturation 18.6, Ferritin 125 11/15/22 11:03: Fluid Source OTHER, Fluid Color YELLOW, Fluid Appearance CLEAR, Fluid WBC 0.249, Fluid RBC 49, Fluid Tot Cell Count 0.330, Fld Polynuclear WBCs # 90.000, Fld Polynuclear WBCs % 0.0, Fluid Mononuclear WBCs 0.224, Fld Mononuclear WBCs % 10.0, Fluid Neutrophils 10, Fluid Lymphocytes 10, Fluid Monocytes 80, Fl Pathologist Comment May follow, Fluid Glucose 95 H 11/15/22 11:03: Fluid Glucose Cancelled, Fluid Total Protein 3.8 11/15/22 11:03: Fluid Total Protein Cancelled, Fluid LDH 102 11/15/22 11:03: Fluid LDH Cancelled, Fluid Comment 2 SEE COMMENT 11/16/22 05:44: WBC 5.2, RBC 4.37 L, Hgb 12.5 L, Hct 38.5 L, MCV 88.1, MCH 28.6, MCHC 32.5, RDW Std Deviation 43.9, RDW Coeff of Hannah 13.5, Plt Count 147 L, MPV 9.9, Immature Gran % (Auto) 0.200, Neut % (Auto) 68.3, Lymph % (Auto) 19.9, Ventura % (Auto) 10.3 H, Eos % (Auto) 1.1, Baso % (Auto) 0.2, Absolute Neuts (auto) 3.6, Absolute Lymphs (auto) 1.04, Nucleated RBC % 0, Sodium 139, Potassium 3.2 L, Chloride 104, Carbon Dioxide 28.0, Anion Gap 7, BUN 14, Creatinine 0.99, Estim Creat Clear Calc 111.43, Est GFR (MDRD) Af Amer 104, Est GFR (MDRD) Non-Af 86, BUN/Creatinine Ratio 14.2, Glucose 86, Calcium 8.8, Total Bilirubin 1.40 H, Direct Bilirubin 0.49 H, AST 27, ALT 23, Alkaline Phosphatase 68, Total Protein 6.1 L, Albumin 3.2, Globulin 2.9 Radiography Diagnostic Testing: Radiology Impression Echocardiogram 11/14/22 17:53 Interpretation Summary The left ventricular ejection fraction is 25 %. Mildly dilated left ventricle. Moderate concentric left ventricular hypertrophy. There is severe global hypokinesis of the left ventricle. Pulmonary artery systolic pressure is 45 mmHg. Biatrial enlargement Ordering Physician: Drew Ghotra Referring Physician: Phoebe Carvalho Performed By: Lexis Sanchez RDCS, RVT Thoracentesis Ultrasound 11/15/22 09:20 IMPRESSION: Ultrasound-guided right thoracentesis. Electronically Signed: Charles Norton MD at 12:16 EDT , Abdomen Ultrasound 11/15/22 10:21 IMPRESSION: Small pocket of free fluid is seen in the right lower quadrant. Electronically Signed: Charles Norton MD at 12:28 EDT , Chest X-Ray 11/15/22 10:50 IMPRESSION: Status post right thoracentesis. No evidence of pneumothorax. Residual pleural parenchymal changes at the right lung base. Electronically Signed: Charles Norton MD at 12:36 EDT , Physical Exam Narrative GENERAL: cooperative HEENT: Atraumatic; normocephalic EYES; Anicteric, Normal Conjunctiva NECK; supple, normal thyroid, RESPIRATORY: Diminished to auscultation CARDIOVASCULAR: Regular S1 S2, GI: soft, normoactive bowel sounds, ascites : No Renal angle tenderness; EXTREMITIES: edema, no clubbing, MUSCULOSKELETAL: no muscle wasting NEURO: Awake; no lateralizing signs. SKIN: No Rash PSYCH; Flat affect Assessment & Plan Assessment/Plan (1) Atrial fibrillation with rapid ventricular response: PLAN: Plan Patient is a 47-year-old male with history of chronic alcohol use as well as hypertension presented to the emergency department with worsening shortness of breath with abdominal distention and bilateral lower extremity swelling 1. A-fib with RVR, new diagnosis; ? Patient admitted to a monitored bed started on Cardizem drip as well as hepar in. Echo ordered as part of patient's management. Patient heparin discontinued given patient low [id number] score of 1 (HTN). ? 11/16/2022; patient rate is controlled 2. Acute congestive heart failure with reduced ejection fraction ? Per stated by patient A-fib with RVR as well as suspected underlying cardiomyopathy from alcohol use echo ordered for subsequent assessment. Placed on strict input and output, daily weight, low-sodium diet and diuretic therapy ? 11/16/2022; 2D echo demonstrated EF of 25% Case discussed with cardiology patient started on guideline directed medical therapy 3. Large right-sided pleural effusion ? Order placed for patient to undergo ultrasound-guided diagnostic and therapeutic thoracocentesis ? 11/16/2022 patient underwent ultrasound-guided thoracentesis on 11/16/2022 with 2 L of pleural fluid taken off 4. Ascites i ? Do suspect underlying cyst cirrhosis of the liver given patient chronic alcohol use. An order placed for diagnostic and therapeutic paracentesis ? 11/16/2022 patient was seen in consultation by Dr. Gray with GI his notes and recommendations including patient having a biopsy performed on 11/16/2022 reviewed. 5. Chronic alcohol use ? Counseled on cessation 6. Class I obesity with BMI of 30 ? Weight loss advised 7. Essential hypertension ? Currently not on any medications 8. DVT prophylaxis ? Patient was on heparin discontinued Time spent in the patient's overall evaluation,decision-making process, review of diagnostic data, adjustment of management, discussion with other providers, nursing nursing and ancillary staff involved in patient's care documentation, 50 Minutes Charges/Coding Visit Charges Inpatient E&M: 29416 [facility]osp L3
[2022-11-16] MEDS: Carvedilol 6.25 MG Tablet PO (10:46)
[2022-11-16] MEDS: Potassium Chloride Oral Tablet 20 MEQ 40 MEQ PO (10:46)
[2022-11-16] MEDS: Spironolactone 25 MG Tablet PO (10:46)
[2022-11-16] MEDS: Lisinopril 2.5 MG Tablet PO (10:47)
[2022-11-16] MEDS: 0.9% Normal Saline (250mL Bag) 250 ML 15 ML IV (12:41)
[2022-11-16] MEDS: Midazolam 2 MG/2 ML Syringe IV (13:02)
[2022-11-16] MEDS: fentaNYL 100 MCG/2 ML Ampul IV (13:03)
[2022-11-16] MEDS: Lidocaine 2% (20 ml mdv) 20 ML Vial INFILT (13:10)
[2022-11-16 15:08] LABS: Anti-Centromere B Ab <0.2 AI (0.0-0.9); Anti-Chromatin <0.2 AI (0.0-0.9); Anti-Jo <0.2 AI (0.0-0.9); Anti-Mitochondrial AB <20.0 Units (0.0-20.0); Anti-Scleroderma-70 AB <0.2 AI (0.0-0.9); Anti-dsDNA Ab <1 IU/mL (0-9); RNP Ab 0.4 AI (0.0-0.9); SJOGREN'S Anti-SS-A test < 0.2 AI (0.0-0.9); SJOGREN'S Anti-SS-B test < 0.2 AI (0.0-0.9); Smith Ab <0.2 AI (0.0-0.9)
[2022-11-16] MEDS: Furosemide 40 MG Tablet PO (15:46)
[2022-11-17 03:20] VITALS: BP 106/71; PULSE 102; RESP 15; TEMP 36.4; O2SAT 95
[2022-11-17 04:30] VITALS: BMI 29.9
[2022-11-17 05:07] LABS: Ceruloplasmin 28.9 mg/dL (16.0-31.0); Haptoglobin 147 mg/dL (23-355)
[2022-11-17 06:40] LABS: Absolute Lymphocyte Count 1.18 X10^3/uL (0.83-4.51); Absolute Neutrophil Count 2.6 X10^3/uL (2.0-7.7); Basophil# 0.02 X10^3/uL; Basophil% 0.5 % (0-1); Eosinophils% 2.3 % (0-5); Hematocrit 39.9 % (40-54); Hemoglobin 13.4 g/dL (13.0-16.5); Lymphocyte # 1.18 X10^3/ul (0.83-4.51); Lymphocyte % 27.1 % (19-41); Mean Corp Hgb Conc 33.6 g/dL (32-36); Mean Corpuscular Hgb 29.7 pg (27.0-32.0); Mean Corpuscular Volume 88.5 fL (80-94); Mean Platelet Vol. 9.8 fl (6.2-12.0); Monocyte# 0.48 X10^3/uL; NRBC Flagged by Analyzer 0 % (0-5); Neutrophil # 2.57 X10^3/uL (2.7-7.7); Neutrophil % 58.9 % (47-70); Platelet Count 148 K/mm3 (150-450); RBC Distribution Width CV 13.5 % (11.6-14.6); RBC Distribution Width SD 44.3 fl (35.1-43.9); Red Blood Count 4.51 M/mm3 (4.6-6.2); White Blood Count 4.4 K/mm3 (4.4-11.0)
[2022-11-17 07:07] VITALS: O2SAT 96
[2022-11-17 07:18] LABS: AST(SGOT) 31 U/L (15-37); Alanine Aminotransfer ALT/SGPT 25 U/L (16-61); Albumin, Serum 3.2 g/dL (3.2-5.0); Alkaline Phosphatase 69 U/L (45-117); Anion Gap 7 (5-15); BUN 13 mg/dL (7-18); BUN/Creat Ratio 14.9 RATIO (10-20); Calcium,Total 8.9 mg/dL (8.5-10.1); Chloride 105 mmol/L (98-107); Creatinine, Serum 0.87 mg/dL (0.70-1.30); EST Glomerular Filtration Rate 100 mL/min (>60); Est Glom Filt Rate - Afr Amer 121 mL/min (>60); Glucose 78 mg/dL (74-106); Potassium 3.2 mmol/L (3.5-5.1); Protein, Total 6.2 g/dL (6.4-8.2); Sodium Level 140 mmol/L (136-145)
[2022-11-17 09:09] LABS: Albumin, Body Fluid 2.7 g/dL (Not Estab.); Amylase Body Fluid 36 U/L (.)
[2022-11-17 09:51] LABS: Pathologist Comment/Body Fluid Reviewed
[2022-11-17 09:52] VITALS: BP 118/73; PULSE 128; RESP 15; TEMP 35.5; O2SAT 99
[2022-11-17] MEDS: Furosemide 40 MG Tablet PO (09:56)
[2022-11-17] MEDS: Spironolactone 25 MG Tablet PO (09:56)
[2022-11-17] MEDS: Carvedilol 6.25 MG Tablet PO (09:57)
[2022-11-17] MEDS: Lisinopril 2.5 MG Tablet PO (09:57)
[2022-11-17] MEDS: Potassium Chloride Oral Tablet 20 MEQ 40 MEQ PO (10:00)
--- NOTE | 2022-11-17 10:17 | CASEMGMT ---
RN PAWEL NOTE: Per Dr Vásquez, plan is to discharge home today and pt will be discharging home on Eliquis. RN CM to room. Pt sitting up in chair in room. @ bedside. Eliquis 30-day savings card provided and instructed on use. They voice understanding. Pt and deny having other discharge planning needs or concerns. Levy ROME RN CM
--- NOTE | 2022-11-17 11:19 | PCM.DC.SUM ---
Providers Date of Admission: 11/14/22 Date of Discharge: 11/17/22 Primary Care Physician: LEAH Jason Consultations 11/14/22 17:54 Consult: Interventional Radiology Routine Consulting Provider: Charles Norton Reason for Consult: diagnostic and therapeutic thoracentesis and paracentesis EMERGENT Consult: No MD Notified: Yes Date Notified: 11/15/22 Time Notified: 09:35 Method of Notification: Verbal 11/14/22 17:56 Consult: Cardiology Routine Consulting Provider: Daniel Cabrera Reason for Consult: New onset A-fib with RVR, concern for heart failure EMERGENT Consult: No Notified: Yes Date Notified: 11/14/22 Time Notified: 17:56 Method of Notification: Text 11/14/22 17:57 Consult: Gastroenterology Routine Consulting Provider: [facility] Reason for Consult: New large ascites with suspected portal hypertension EMERGENT Consult: No Notified: Yes Date Notified: 11/14/22 Time Notified: 17:57 Method of Notification: Text 11/15/22 09:21 Consult: Gastroenterology Routine Consulting Provider: [facility] Reason for Consult: ascites EMERGENT Consult: No Notified: Yes Date Notified: 11/15/22 Time Notified: 09:22 Method of Notification: Text Reason For Visit: A-FIB WITH RVR, LARGE RIGHT PLEURAL EFFUSION Diagnosis Discharge Diagnosis (1) Atrial fibrillation with rapid ventricular response: Status: Acute Code(s): I48.91 - Unspecified atrial fibrillation Plan Patient is a 47-year-old male with history of chronic alcohol use as well as hypertension presented to the emergency department with worsening shortness of breath with abdominal distention and bilateral lower extremity swelling 1. A-fib with RVR, new diagnosis; ? Patient admitted to a monitored bed started on Cardizem drip as well as heparin. Echo ordered as part of patient's management. Patient heparin discontinued given patient low [id number] score of 1 (HTN). ? 11/16/2022; patient rate is controlled ? Patient was discharged on Coreg as well as systemic anticoagulation with apixaban with plans for follow-up to cardiology. 2. Acute congestive heart failure with reduced ejection fraction ? Per stated by patient A-fib with RVR as well as suspected underlying cardiomyopathy from alcohol use echo ordered for subsequent assessment. Placed on strict input and output, daily weight, low-sodium diet and diuretic therapy ? 11/16/2022; 2D echo demonstrated EF of 25% Case discussed with cardiology patient started on guideline directed medical therapy 3. Large right-sided pleural effusion ? Order placed for patient to undergo ultrasound-guided diagnostic and therapeutic thoracocentesis ? 11/16/2022 patient underwent ultrasound-guided thoracentesis on 11/16/2022 with 2 L of pleural fluid taken off 4. Ascites i ? Do suspect underlying cyst cirrhosis of the liver given patient chronic alcohol use. An order placed for diagnostic and therapeutic paracentesis ? 11/16/2022 patient was seen in consultation by Dr. Gray with GI his notes and recommendations including patient having a biopsy performed on 11/16/2022 reviewed. ? Patient to follow-up with GI for results 5. Chronic alcohol use ? Counseled on cessation 6. Class I obesity with BMI of 30 ? Weight loss advised 7. Essential hypertension ? Currently not on any medications 8. DVT prophylaxis ? Patient was on heparin discontinued Time spent in the patient's overall evaluation,decision-making process, review of diagnostic data, adjustment of management, discussion with other providers, nursing nursing and ancillary staff involved in patient's care documentation, 35 minutes Medications at Discharge Home Medications apixaban 5 mg tablet 5 mg PO BID #60 tabs 11/17/22 carvedilol 6.25 mg tablet 6.25 mg PO BID #60 tabs 11/17/22 furosemide 40 mg tablet 40 mg PO BIDLX #60 tabs 11/17/22 lisinopril 2.5 mg tablet 2.5 mg PO DAILY #30 tabs 11/17/22 potassium chloride 20 mEq tablet,extended release(part/cryst) 20 meq PO DAILY #30 tabs 11/17/22 spironolactone 25 mg tablet 25 mg PO DAILY #30 tabs 11/17/22 Hospital Course Summary of Care Provided Minutes Spent on Discharge: 35 Physical Exam Narrative GENERAL: cooperative HEENT: Atraumatic; normocephalic EYES; Anicteric, Normal Conjunctiva NECK; supple, normal thyroid, RESPIRATORY: Diminished to auscultation CARDIOVASCULAR: Regular S1 S2, GI: soft, normoactive bowel sounds, ascites : No Renal angle tenderness; EXTREMITIES: edema, no clubbing, MUSCULOSKELETAL: no muscle wasting NEURO: Awake; no lateralizing signs. SKIN: No Rash PSYCH; Flat affect Weight / BMI Weight Weight: 108.5 kg Body Mass Index (BMI) 29.9 ABG / Lab / Microbiology Data 11/17/22 05:08 11/17/22 05:08 Laboratory: Laboratory Results - last 24 hr 11/15/22 11:03: Fl Pathologist Comment Reviewed, Fluid Albumin 2.7, Fluid Amylase 36 11/15/22 11:57: JANES-1 Antibody <0.2, SS-A/Ro IgG Antibody < 0.2, SS-B/La IgG Antibody < 0.2, Sm (Rocha) Antibody <0.2, EQUITY DIRECTOR Antibody 0.4, Scl-70 Scleroderma Ab <0.2, Double Strand DNA Ab <1, Centromere B Antibody <0.2, Anti-Mitochondrial Ab <20.0 11/15/22 : Haptoglobin 147, Ceruloplasmin 28.9 11/17/22 05:08: WBC 4.4, RBC 4.51 L, Hgb 13.4, Hct 39.9 L, MCV 88.5, MCH 29.7, MCHC 33.6, RDW Std Deviation 44.3 H, RDW Coeff of Hannah 13.5, Plt Count 148 L, MPV 9.8, Immature Gran % (Auto) 0.200, Neut % (Auto) 58.9, Lymph % (Auto) 27.1, [place] % (Auto) 11.0 H, Eos % (Auto) 2.3, Baso % (Auto) 0.5, Absolute Neuts (auto) 2.6, Absolute Lymphs (auto) 1.18, Nucleated RBC % 0, Sodium 140, Potassium 3.2 L, Chloride 105, Carbon Dioxide 28.0, Anion Gap 7, BUN 13, Creatinine 0.87, Estim Creat Clear Calc 126.80, Est GFR (MDRD) Af Amer 121, Est GFR (MDRD) Non-Af 100, BUN/Creatinine Ratio 14.9, Glucose 78, Calcium 8.9, Total Bilirubin 1.40 H, Direct Bilirubin 0.50 H, AST 31, ALT 25, Alkaline Phosphatase 69, Total Protein 6.2 L, Albumin 3.2, Globulin 3.0 Radiography Diagnostic Testing: Radiology Impression Biopsy CT 11/16/22 08:09 IMPRESSION: 1. CT directed core needle biopsy of the liver, using CT image guidance with image documentation as described. 2. Conscious Sedation protocol utilized with independent monitoring. Electronically Signed: Charles Norton MD at 13:49 EDT , D/C Instructions Discharge Diet: No restrictions Discharge Activity: Return to Normal Activity Call your doctor if you observe: Fever of 101 or Higher, Shortness of breath, Fainting spells and Chest pain Meaningful Use Info Meaningful Use Diagnoses (Choose all that apply): CHF CHF PATRICIA/ARB ordered at discharge?: Yes Documented LVEF (%): 25 Discharge Plan Admission Admit Date/Time: 11/14/22 16:12 Attending Provider: Kris Vásquez Primary Care Provider: Phoebe Carvalho NP Consulting Providers: Daniel Cabrera; Drew Ghotra; Charles Norton Instructions Patient Instructions: RAD RN Thoracentesis Dc, RAD RN Biopsy Liver Dc, RAD RN Procedural Sedation Discharge Orders/Prescriptions Prescriptions: New furosemide 40 mg Tablet 40 mg PO BIDLX Qty: 60 0RF carvedilol 6.25 mg Tablet 6.25 mg PO BID Qty: 60 0RF spironolactone 25 mg Tablet 25 mg PO DAILY Qty: 30 0RF lisinopril 2.5 mg Tablet 2.5 mg PO DAILY Qty: 30 0RF apixaban 5 mg tablet 5 mg PO BID Qty: 60 0RF potassium chloride 20 mEq tablet,ER particles/crystals 20 meq PO DAILY Qty: 30 0RF Referrals / Follow Up: Daniel Cabrera MD [Med Staff - Active Staff] - Within 2 Weeks Sergio Gray DO [Med Staff - Active Staff] - Within 2 Weeks Phoebe Carvalho NP, SOFTWARE INTEGRATION DEVELOPER-C [Primary Care Provider] - Within 2 Weeks Disposition Disposition (needs filled in before D/C Order can be placed): Home, Self Care Charges/Coding Visit Charges Inpatient E&M: 98795 Disch Hosp >30min
--- NOTE | 2022-11-17 12:37 | PHA.DC.MC.R ---
Pharmacy [facility] has performed discharge medication reconciliation and counseling for this patient. The patient was counseled on the following discharge medications and changes in medications for homegoing were reviewed. 1. ELIQUIS 2. COREG 3. LISINOPRIL 4. LASIX 5. ALDACTONE 6. POTASSIUM The Reason for Use, instructions for use, and potential side effects were reviewed for all new medications. The patient's questions regarding all of their medications were answered. The patient was able to verbally demonstrate an understanding of their discharge medications. The patient's discharge medication list was reviewed for discrepancies and discrepancies were resolved. Medications at Discharge Home Medications apixaban 5 mg tablet 5 mg PO BID #60 tabs 11/17/22 carvedilol 6.25 mg tablet 6.25 mg PO BID #60 tabs 11/17/22 furosemide 40 mg tablet 40 mg PO BIDLX #60 tabs 11/17/22 lisinopril 2.5 mg tablet 2.5 mg PO DAILY #30 tabs 11/17/22 potassium chloride 20 mEq tablet,extended release(part/cryst) 20 meq PO DAILY #30 tabs 11/17/22 spironolactone 25 mg tablet 25 mg PO DAILY #30 tabs 11/17/22
[2022-11-17 14:28] VITALS: BP 91/72; PULSE 112; RESP 15; TEMP 36.7; O2SAT 98
[2022-11-19 02:07] LABS: Alpha Antitrypsin Serum 183 mg/dL (101-187)
[2022-11-19 05:08] LABS: Anti-Smooth Muscle ABS 5 Units (0-19); Cytoplasmic Ab (C-ANCA) <1:20 titer (Neg:<1:20); Deamidated Gliadin IgA 16 units (0-19); Deamidated Gliadin IgG 3 units (0-19); Endomysial Antibody IgA Negative (Negative); HEPATITIS B SURFACE AG Negative (Negative); Hep C Antibodies Non Reactive (Non Reactive); Hepatitis A IgM Antibody Negative (Negative); Hepatitis B Core AB IgM Negative (Negative); Immunoglobulin A 324 mg/dL (90-386); Immunoglobulin E 24 IU/mL (6-495); Immunoglobulin G 737 mg/dL (603-1613); Immunoglobulin M 75 mg/dL (20-172); Perinuclear Ab (P-ANCA) <1:20 titer (Neg:<1:20); t-Transglutaminase IgA <2 U/mL (0-3)
[2022-11-24 18:07] LABS: Copper, Serum or Plasma 119 ug/dL (69-132)
== END 2022-11-17 14:45 | disposition home or self-care (01) | DRG 308 ==
LOC: ED 14:15 → PCU 16:39
PROVIDERS: Internal Medicine Cardiovascular Disease; Internal Medicine Gastroenterology; Admitting Provider Hospitalist; Emergency Provider Emergency Medicine; PCP Registered Nurse; Visit Provider Internal Medicine
DX: I48.91 Unspecified atrial fibrillation (principal); I50.21 Acute systolic (congestive) heart failure; J94.8 Other specified pleural conditions; K76.6 Portal hypertension; I42.6 Alcoholic cardiomyopathy; K70.31 Alcoholic cirrhosis of liver with ascites; I11.0 Hypertensive heart disease with heart failure; E80.4 Gilbert syndrome; E66.9 Obesity, unspecified; Z68.30 Body mass index [BMI] 30.0-30.9, adult; Z87.891 Personal history of nicotine dependence
CPT/HCPCS: 32555; 36415; 71045; 71046; 71275; 74177; 76705; 77012; 80048; 80061; 80074; 80076; 82042; 82103; 82105; 82150; 82390; 82525; 82728; 82784; 82785; 82945; 83010; 83036; 83516; 83540; 83550; 83615; 83690; 83735; 83880; 84157; 84443; 84484; 85025; 85379; 85610; 85730; 86225; 86235; 86255; 86256; 88108; 88305; 88307; 88313; 89050; 93005; 93306; 99285; J7030; J7050; Q9967; A4216; J1940

== ENCOUNTER → 2022-12-13 | Outpatient (CLI) | payer OTHER, SELFPAY ==
[2022-12-13 11:35] LABS: Absolute Lymphocyte Count 1.86 X10^3/uL (0.83-4.51); Absolute Neutrophil Count 4.8 X10^3/uL (2.0-7.7); Basophil# 0.02 X10^3/uL; Basophil% 0.3 % (0-1); Eosinophil# 0.16 X10^3/uL; Eosinophils% 2.1 % (0-5); Hemoglobin 15.6 g/dL (13.0-16.5); Lymphocyte # 1.86 X10^3/ul (0.83-4.51); Lymphocyte % 24.9 % (19-41); Mean Corp Hgb Conc 33.2 g/dL (32-36); Mean Corpuscular Hgb 28.1 pg (27.0-32.0); Mean Corpuscular Volume 84.5 fL (80-94); Mean Platelet Vol. 9.7 fl (6.2-12.0); Monocyte# 0.61 X10^3/uL; Monocyte% 8.2 % (0-10); NRBC Flagged by Analyzer 0 % (0-5); Neutrophil # 4.81 X10^3/uL (2.7-7.7); Neutrophil % 64.2 % (47-70); Platelet Count 157 K/mm3 (150-450); RBC Distribution Width CV 12.4 % (11.6-14.6); RBC Distribution Width SD 38.3 fl (35.1-43.9); Red Blood Count 5.56 M/mm3 (4.6-6.2); White Blood Count 7.5 K/mm3 (4.4-11.0)
[2022-12-13 12:15] LABS: AST(SGOT) 30 U/L (15-37); Alanine Aminotransfer ALT/SGPT 35 U/L (16-61); Albumin, Serum 3.9 g/dL (3.2-5.0); Alkaline Phosphatase 77 U/L (45-117); Anion Gap 4 (5-15); BUN 21 mg/dL (7-18); BUN/Creat Ratio 18.9 RATIO (10-20); Chloride 104 mmol/L (98-107); Creatinine, Serum 1.11 mg/dL (0.70-1.30); EST Glomerular Filtration Rate 76 mL/min (>60); Est Glom Filt Rate - Afr Amer 91 mL/min (>60); Globulin 3.9 g/dL (2.2-4.2); Glucose 92 mg/dL (74-106); Potassium 4.1 mmol/L (3.5-5.1); Protein, Total 7.8 g/dL (6.4-8.2); Sodium Level 138 mmol/L (136-145)
== END | disposition home or self-care (01) ==
LOC: LAB 10:33
PROVIDERS: PCP Registered Nurse; Referring Provider Physician Assistant Medical; Visit Provider Physician Assistant Medical
DX: I11.0 Hypertensive heart disease with heart failure (principal); I50.9 Heart failure, unspecified
CPT/HCPCS: 36415; 80053; 85025

== ENCOUNTER 2022-12-27 10:18 | Day surgery (SDC) | payer OTHER, SELFPAY ==
[2022-12-27] VITALS (8 sets, daily range): BP systolic 80–150; BP diastolic 62–137; PULSE 80–133; RESP 14–17; TEMP 36.2–36.6; O2SAT 97–100; BMI 26.3
[2022-12-27] MEDS: Lactated Ringers 1,000 ML 15 ML IV (10:48)
--- NOTE | 2022-12-27 10:56 | PCM.HP.BLA ---
History and Physical Date of Admission: 12/27/22 MIKEY PHILIP, is a 47 M who presents to the office today for hospital follow up. [facility] 11.14.22- SOB, abd distention, b/l lower extremity swelling. Pt has hs of chronic alcohol abuse and HTN. D/c hospital with sx of A-Fib with RVR, Acute CHF, Lg rt sided PF, Ascites, DVT prophylaxis. Liver biopsy 11.16.22- Consistent with cirrhosis OV 12.09.22: Patient denies leg swelling, shortness of breath. Lisinopril was discontinued with PCP as blood pressure was low. Patient wondering if he can get off the furosemide but convinced for lowering the dose to 40 mg once daily. Patient is also on potassium supplement 20 mEq and spironolactone 25 mg daily. Patient has follow-up with cardiology in 3 days. ROS Const Constitutional: No fatigue ENT ENT: No difficulty swallowing Gastro GI: No abdominal pain, belching, bloating, change in bowel habits, change in stool character, coffee ground emesis, constipation, cramping, diarrhea, heartburn, difficulty swallowing, feeling full early, excessive flatus, incontinent of stools, Vomiting blood/hematemesis, Blood in stool, loose stools, Black,tarry stools, nausea/dyspepsia, pain with swallowing, vomiting or other Musc Musculoskeletal: Positive for back pain; No joint pain Skin Skin: No yellowing of the eye or itchy eyes Psych Psychiatric: No anxiety and No depression Endo Endocrine: No fatigue Aller/Imm Allergy/Immunologic: No itchy eyes Dung/Lymp Hematologic/Lymphatic: No easy bleeding or easy bruising Exam Const General: cooperative, no acute distress and well developed Nutritional Appearance: average body habitus Orientation: alert, awake and oriented x3 [facility] Head: normocephalic and atraumatic Nose: external nose normal Face and sinus: normal facial exam Mouth: moist mucous membranes Eyes Pupils: PERRL EOM: EOM intact bilaterally Neck Neck: normal visual inspection, no meningeal signs and trachea midline Carotids: no bruits Chest Chest palpation & inspection: normal inspection of the chest Resp Effort & Inspection: normal respiratory effort and symmetric chest movement Auscultation: Bilateral: Clear to Auscultation Cardio Palpation: normal PMI Rhythm: abnormal rhythm Heart Sounds: S1 normal and S2 normal GI Auscultation: normal bowel sounds Percussion: normal to percussion Palpation: soft, no hepatosplenomegaly and no guarding General: bimanual renal exam normal bilaterally, bladder normal to inspection and bladder normal to palpation Musc Musculoskeletal: No joint tenderness, joint redness, joint warmth or decreased range of motion Thoracic/Lumbar Spine: thor and lumb spine abnorm to inspection Skin General: rashes and/or lesions noted, turgor normal and no erythema Wounds: wound noted Neuro General: patient alert, patient awake, patient oriented x3 and no focal motor deficits Speech: speech normal Motor: muscle tone normal throughout Extrem General: normal exam except as noted Psych Appearance: grossly normal Mood: congruent mood Affect: normal affect Attitude: cooperative Quality Reporting Tobacco Screening ([facility] 138) Smoking Status: Never smoker Assessment and Plan Assessment and Plan (1) Hydrothorax: Status: Acute Plan: 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 Pleural fluid analysis shows total protein 3.8, serum protein 6.2, fluid/serum protein ratio 0.51 but patient was treated with Lasix. 2D echo shows mildly dilated LV with EF 25%. Severe global hypokinesis of LV PASP 45 mmHg biatrial enlargement. Mild to moderate TR. Mild mitral insufficiency. Moderately dilated RV with moderate global RV systolic dysfunction. (2) Cirrhosis, alcoholic: Status: Acute Qualifiers: Ascites presence: with ascites Qualified Code(s): K70.31 - Alcoholic cirrhosis of liver with ascites (3) Gilbert disease: Status: Acute Plan: Most likely indirect bilirubinemia due to Gilbert's disease. Continue to follow liver chemistry. Patient does not have liver tenderness. Orders: Orders CBC W/Diff, Automated 3 Months K70.30 - Alcoholic cirrhosis of liver without ascites Comprehensive Metabolic Profil 3 Months K70.30 - Alcoholic cirrhosis of liver without ascites Prothrombin Time w/INR 3 Months K70.30 - Alcoholic cirrhosis of liver without ascites GGTP 3 Months K70.30 - Alcoholic cirrhosis of liver without ascites Medications: New spironolactone Discontinue if serum potassium more than 5.0 50 mg PO DAILY 30 tabs 2RF Changed From furosemide 40 mg PO BIDLX 60 tabs 0RF To furosemide 40 mg PO DAILY 30 tabs 2RF Discontinued potassium chloride ER Discontinued Reason: Discontinued by PCP/other physicians 20 mEq PO DAILY 30 tabs 0RF spironolactone Discontinued Reason: Discontinued by PCP/other physicians 25 mg PO DAILY 30 tabs 0RF Plan (2) Alcoholic liver damage: Liver biopsy reviewed from 11/16/2022. It shows distortion of normal architecture into multiple variable sized nodules divided by fibrous septae. Focal mild nodular inflammation. Iron is still shows absent iron. Overall it is consistent with cirrhosis. CT abdomen with IV contrast shows features consistent with portal hypertension with extensive ascites and mesenteric edema thick-walled gallbladder and calcified stones. CTA chest shows right pleural effusion with consolidation of right lower lobe no PE noted. No masses noted. CT abdomen pelvis with IV contrast 11/14/2022 IMPRESSION: Diffuse diverticular disease of the colon without evidence for acute diverticulitis Findings consistent with portal hypertension with extensive ascites and mesenteric edema. Large right pleural effusion with consolidation of the right lower lobe Incidental rim calcified density in the right lobe of the liver of uncertain etiology. MRI would be useful for more definitive evaluation if clinically warranted Thick-walled gallbladder without calcified stones. If concern for gallbladder disease ultrasound recommended. Multiple other findings as above Discussed the significance of HCC surveillance every 6 months with AFP and ultrasound/CT scan and EGD surveillance. Schedule EGD with Dr. Gray. MELD sodium score 11, less than 2% estimated 90-day mortality. Child score 8, class B. Labs reviewed and autoimmune markers are negative. Fasting profile shows HDL 36 otherwise normal. TSH 5.87. aFP 3.5. Celiac panel is negative. Hepatitis panel A, B, and C negative. Will need hepatitis B and hepatitis A vaccine as an outpatient by PCP. Furosemide dose decreased to 40 mg daily and advised the patient to keep check body weight before breakfast daily. If he gains body weight more than 3 pound 1 week or leg swelling or shortness of breath will increase to 40 g twice daily. Patient is also on potassium supplement 20 mEq aspirin and Ultram 25 mg daily therefore spironolactone dose increased to 50 mg daily and discontinue potassium supplement to decrease the pill load. Lisinopril was discontinued by PCP because blood pressure was low. Repeat labs CBC with differential, CMP, PT/INR GGT in 1 month. AFP and liver ultrasound in 6 months. I have examined the patient and the H&P has been reviewed. There are no clinical changes since date of exam.
--- NOTE | 2022-12-27 11:30 | IMM_PTH ---
PATIENT: MIKEY PHILIP LOC: EN U#:[id number] AGE/SX: 47/M ROOM: RE12/27/[address]: Dr. Sergio Gray DO : 1975 BED: DIS: 12/27/2022 SPEC #: [id number] RECD: 12/27/22 15:13 STATUS: MEHRDAD REMason #: [id number] JACQUE: 12/27/22 11:[address]: Sergio Gray DEPT: IMMUNOHISTOCHEMISTRY RECD BY: Lori Briscoe ENTERED: 12/27/22 15:14 SP TYPE: IMMUNO OTHR DR: Phoebe Carvalho, OIM CONSULTANT-C Phoebe Carvalho NP-C Tissues: A - Stomach, NOS Procedures: H Pylori (initial) PHYSICIAN & INSTITUTION [place] [id number] SPECIMEN INFORMATION: Tissue Source: A - Gastric ulcer Clinical Info: Hydrothorax, cirrhosis, Gilbert disease Specimen Number: [id number] CPT code: 20574 METHODOLOGY: Deparaffinized sections of prefer/formalin-fixed tissue or PAP/DQ stained slides are incubated with monoclonal/polyclonal antibodies/oligonucleotide probes. Localization is made via biotin free immunoperoxidase method. Appropriate controls are performed and reacted as expected. Results on target cell population are indicated in the following table: RESULTS: ANTIBODY / CLONE RESULT Block A H Pylori (polyclonal) negative These tests were developed and their performance characteristics determined by [facility]. They may not have been cleared or approved by the U.S. Food and Drug Administration. The FDA has determined that such clearance or approval is not necessary. The above immunohistochemical/dualISH markers are ordered and reviewed by the Pathologist. INTERPRETATION: A. Gastric ulcer, biopsy: Negative for Helicobacter pylori organisms. AM:shiv 12/28/2022
--- NOTE | 2022-12-27 11:30 | EGD_PTH ---
PATIENT: MIKEY PHILIP LOC: EN U#:[id number] AGE/SX: 47/M ROOM: RE12/27/[address]: Dr. Sergio Gray DO : 1975 BED: DIS: 12/27/2022 SPEC #: [id number] RECD: 12/27/22 13:51 STATUS: MEHRDAD REMason #: [id number] JACQUE: 12/27/22 11:[address]: Sergio Gray DEPT: SURGICAL PATHOLOGY RECD BY: Lawanda Hudson ENTERED: 12/27/22 14:24 SP TYPE: EGD BIOPSY OT DR: Phoebe Carvalho, EMG TECHNICIAN-C LEAH Jason Tissues: A - Gastric mucous membrane B - Esophagus, NOS Procedures: Special Stain Group II Surgery Specimen Level IV Alcian Blue/PAS (control) HEADER OPERATION: EGD, biopsy PRE-OP DIAGNOSIS: Hydrothorax, cirrhosis, Gilbert disease TISSUE SUBMITTED: A - Gastric ulcer biopsy, B - Distal esophagus biopsy MICROSCOPIC DIAGNOSIS A. Gastric ulcer, biopsy: Chronic gastritis. See comment. B. Distal esophagus, biopsy: Gastroesophageal junctional mucosa with mild chronic inflammation. No evidence of goblet cell metaplasia. See comment. AM:shiv 12/28/2022 COMMENT A. The results of immunohistochemistry for Helicobacter pylori will be reported separately ([id number]). B. Alcian blue/PAS stain with matched control supports the above diagnosis. MICROSCOPIC DESCRIPTION Slides are reviewed. GROSS DESCRIPTION A - Received in fixative is one container labeled with the patient's name and designated gastric ulcer. The specimen consists of two irregular fragments of light iraheta soft tissue that in aggregate measure 0.7 x 0.5 x 0.1 cm. The specimen is totally submitted in one cassette. B - Received in fixative is one container labeled with the patient's name and designated distal esophagus. The specimen consists of multiple irregular fragments of light iraheta soft tissue that in aggregate measure 0.7 x 0.3 x 0.1 cm. The specimen is totally submitted in one cassette. / AM:shiv 12/27/2022 TC:3 CPT: 17764 x2, 49660
--- NOTE | 2022-12-27 12:03 | OP.EGD_ITS ---
Patient Name: Umer Toussaint Procedure Date: 12/27/2022 11:35 AM Date of : 1975 Age: 47 Procedure: Upper GI endoscopy Indications: Cirrhosis with suspected esophageal varices Providers: Sergio Gray DO Medicines: Monitored Anesthesia Care Patient Profile: This is a 47 year old male. Refer to note in patient chart for documentation of history and physical. Patient has symptoms of acute epigastric abdominal pain and chronic heartburn. Complications: No immediate complications. Procedure: Pre-Anesthesia Assessment: - Prior to the procedure, a History and Physical was performed, and patient medications and allergies were reviewed. The patient is competent. The risks and benefits of the procedure and the sedation options and risks were discussed with the patient. All questions were answered and informed consent was obtained. Patient identification and proposed procedure were verified by the physician in the pre-procedure area. Mental Status Examination: alert and oriented. Airway Examination: normal oropharyngeal airway and neck mobility. Respiratory Examination: clear to auscultation. CV Examination: normal. Prophylactic Antibiotics: The patient does not require prophylactic antibiotics. Prior Anticoagulants: The patient has taken no anticoagulant or antiplatelet agents. ASA Grade Assessment: III - A patient with severe systemic disease. After reviewing the risks and benefits, the patient was deemed in satisfactory condition to undergo the procedure. The anesthesia plan was to use monitored anesthesia care (MAC). Immediately prior to administration of medications, the patient was re-assessed for adequacy to receive sedatives. The heart rate, respiratory rate, oxygen saturations, blood pressure, adequacy of pulmonary ventilation, and response to care were monitored throughout the procedure. The physical status of the patient was re-assessed after the procedure. After obtaining informed consent, the endoscope was passed under direct vision. Throughout the procedure, the patient's blood pressure, pulse, and oxygen saturations were monitored continuously. The gastroscope was introduced through the mouth, and advanced to the second part of duodenum. The upper GI endoscopy was accomplished without difficulty. The patient tolerated the procedure well. Scope In: 11:52:18 AM Scope Out: 11:56:46 AM Total Procedure Duration Time 0 hours 4 minutes 28 seconds Findings: There were esophageal mucosal changes consistent with short-segment Abel's esophagus present in the lower third of the esophagus. The maximum longitudinal extent of these mucosal changes was 3 cm in length. Mucosa was biopsied with a cold forceps for histology in 4 quadrants at intervals of 1 cm in the lower third of the esophagus. One specimen bottle was sent to pathology. Verification of patient identification for the specimen was done. Estimated blood loss was minimal. A small hiatal hernia was present. One non-bleeding linear gastric ulcer with pigmented material was found in the gastric antrum. The lesion was 6 mm in largest dimension. Biopsies were taken with a cold forceps for histology. Verification of patient identification for the specimen was done. Estimated blood loss was minimal. Biopsies were taken with a cold forceps for Helicobacter pylori testing. Verification of patient identification for the specimen was done. Estimated blood loss was minimal. No gross lesions were noted in the first portion of the duodenum. Impression: - Esophageal mucosal changes consistent with short-segment Abel's esophagus. Biopsied. - Small hiatal hernia. - Non-bleeding gastric ulcer with pigmented material. Biopsied. - No gross lesions in the first portion of the duodenum. Recommendation: - Discharge patient to home. - Resume previous diet. - Continue present medications. - Await pathology results. - Repeat upper endoscopy in 1 year for surveillance. - Use Protonix (pantoprazole) 40 mg PO BID. Procedure Code(s): --- Professional --- 95569, Esophagogastroduodenoscopy, flexible, transoral; with biopsy, single or multiple CPT copyright 2021 [employer]. All rights reserved. The codes documented in this report are preliminary and upon chairman & ceo review may be revised to meet current compliance requirements. Sergio Gray DO 12/27/2022 12:03:37 PM This report has been signed electronically. Number of Addenda: 0 Note Initiated On: 12/27/2022 11:35 AM
--- NOTE | 2022-12-27 12:04 | OP.CCLET_ITS ---
12/27/2022 Gee Jason Re : Upper GI endoscopy procedure for Umer Toussaint Kamrynr Maia This procedure was performed on Tuesday, December 27, 2022. My impressions and recommendations are as follows: Impressions : - Esophageal mucosal changes consistent with short-segment Abel's esophagus. Biopsied. - Small hiatal hernia. - Non-bleeding gastric ulcer with pigmented material. Biopsied. - No gross lesions in the first portion of the duodenum. Recommendations : - Discharge patient to home. - Resume previous diet. - Continue present medications. - Await pathology results. - Repeat upper endoscopy in 1 year for surveillance. - Use Protonix (pantoprazole) 40 mg PO BID. My findings are described in the full procedure note, which is enclosed. If I can be of further assistance, please feel free to contact me at . Sincerely, Sergio Gray, 12/27/2022 12:03:37 PM This report has been signed electronically.
--- NOTE | 2022-12-27 12:15 | EKG12_ITS ---
Test Reason : POST OP AFIB RVR Blood Pressure : / mmHG Vent. Rate : 133 BPM Atrial Rate : 147 BPM P-R Int : 000 ms QRS Dur : 094 ms QT Int : 264 ms P-R-T Axes : 000 066 -79 degrees QTc Int : 392 ms Atrial fibrillation Nonspecific T wave abnormality Abnormal ECG When compared with ECG of 15-NOV-2022 00:09, Vent. rate has increased BY 46 BPM Nonspecific T wave abnormality has replaced inverted T waves in Lateral leads Confirmed by DOUG CORONADO, LEMUEL ([id number]), assistant editor NATALI VIZCARRA ([id number]) on 01/04/2023 1:11:19 PM Referred By: Phoebe Carvalho Confirmed By:LEMUEL CAMACHO MD
--- NOTE | 2022-12-27 12:17 | SUR.PHASEI ---
DR PIMENTEL CALLED REGARDING HR BETWEEN 120-145, PT HAS HISTORY OF AFIB. PT NOT DIZZY, LIGHTHEADED, PT DENIES CHEST PAIN. EKG ORDERED. DR PIMENTEL AT BEDSIDE
--- NOTE | 2022-12-27 12:37 | SUR.PHASEI ---
PT MAINTAINING HR BETWEEN 100-118, PER DR CRAIG OK TO D/C FROM PACU. DR PIMENTEL GAVE ESMOLOL AT BEDSIDE.
== END 2022-12-27 13:08 | disposition home or self-care (01) ==
LOC: EN 10:19 → AC 10:21
PROVIDERS: PCP Registered Nurse; Referring Provider Registered Nurse; Visit Provider Internal Medicine Gastroenterology
PROC: 0DJ08ZZ Inspection of Upper Intestinal Tract, Via Natural or Artificial Opening Endoscopic (ICD-10-PCS; CPT 43235; principal; 2022-12-27 11:25)
DX: K29.50 Unspecified chronic gastritis without bleeding (principal); K70.31 Alcoholic cirrhosis of liver with ascites; I50.9 Heart failure, unspecified; I11.0 Hypertensive heart disease with heart failure; I48.19 Other persistent atrial fibrillation; K25.9 Gastric ulcer, unspecified as acute or chronic, without hemorrhage or perforation; J94.8 Other specified pleural conditions; K44.9 Diaphragmatic hernia without obstruction or gangrene; F10.10 Alcohol abuse, uncomplicated; E80.4 Gilbert syndrome; K22.70 Barrett's esophagus without dysplasia; Z79.899 Other long term (current) drug therapy; Z79.01 Long term (current) use of anticoagulants; Z87.19 Personal history of other diseases of the digestive system
CPT/HCPCS: 43239; 88305; 88313; 88342; 93005; J7120; J2405

== ENCOUNTER 2023-01-31 10:23 | Day surgery (SDC) | payer OTHER, SELFPAY ==
--- NOTE | 2023-01-25 15:52 | HP.PCM_ITS ---
History and Physical Date of Admission: 01/31/23 Umer Toussaint is a 47 year old gentleman who presents today for a cardioversion. He presented to [facility] on 11/14/2022 with increased shortness of breath. Symptoms have been worsening for the last 4 months. EKG noted atrial fibrillation with RVR with a heart rate of 140. BNP was elevated at 480. CT of the chest demonstrated large right pleural effusion with consolidation of the right lower lobe and dependent portion of the right upper lobe, no PE, no masses. CT of the abdomen and pelvis demonstrated portal hypertension with excessive ascites and mesenteric edema. Echocardiogram demonstrated an ejection fraction of 25%, mildly dilated left ventricle, moderate concentric LVH, severe global hypokinesis of the left ventricle, RVSP 45 mmHg, biatrial enlargement. Patient did undergo a thoracentesis where 2 L of fluid were removed. Given his chronic alcohol use it was suspected that he had liver cirrhosis. Patient was discharged home on furosemide 40 mg twice a day, carvedilol 6.25 mg twice a day, spironolactone 25 mg daily, lisinopril 2.5 mg daily, apixaban 5 mg twice a day, potassium 20 mEq daily. Plan was to pursue cardioversion after he has been anticoagulated for 30 days. He was seen by GI last week and they decreased his furosemide to 40 mg daily. He has an EGD on 12/27/22. He does feel better since his hospital stay. He is able to lay flat without being SOB. He feels more awake. He is not aware of his Afib. He does not have any chest pain. He does not have any edema. Intake Vital Signs See EMR Allergies SEE EMR Medications See EMR [facility] Medical History Cardiomyopathy Cirrhosis, alcoholic Gilbert disease Hypertension Persistent atrial fibrillation Surgical History History of foot surgery Family History Father Colon cancerMother Diabetes Social History Smoking Status: Never smoker alcohol intake: former ROS Const Const: Negative for fatigue, weakness, fever(s) or headache(s) Eyes Eyes: Negative for blind spots, loss of peripheral vision or transient loss of vision ENT ENT: Negative for headache(s), dizziness, tinnitus, Nosebleed/epistaxis or balance problems Cardio Chest Pain: No Palpitations: No Edema: None Muscle aches with walking: None Resp Respiratory: Negative for SOB with activity, SOB at rest, SOB orthopnea\SOB lying down or Cough GI GI: Negative nausea, vomiting, heartburn or vomiting blood/hematemesis : Negative for hematuria Musc Musc: Negative for muscle aches/ myalgia, muscle weakness, joint pain or balance problems Neuro Neuro: Negative for dizziness, lightheadedness, near syncope, syncope, orthostatic symptoms, headache(s) or weakness Dung Hematologic/Lymphatic: Negative for easy bleeding Endo Endo: Negative for fatigue Cardiology Exam Const Appearance: cooperative, no acute distress and well developed Orientation: alert, awake and oriented x3 Head Head: normocephalic and atraumatic Mouth: moist mucous membranes Eyes General: appearance normal, both eyes and all related structures Conjunctivae: conjunctivae normal Pupils: PERRL EOM: EOM intact bilaterally Neck Neck: normal visual inspection, no lymphadenopathy and no JVD Carotids: Negative bruit Neck Mass: Negative Neck mass Chest Chest inspection: normal inspection of the chest and symmetric chest movement Auscultation: Bilateral: Clear to Auscultation Cardio Palpation: normal PMI Rate: tachycardic Rhythm: irregularly irregular Heart sounds: S1 normal and S2 normal; Negative rub, gallop or murmur GI GI: normal to inspection, soft, no hepatosplenomegaly and bowel sounds present; Negative tender Neuro General: patient alert, patient awake, patient oriented x3, CN's II-XI intact bilaterally and moves all extremities Extremities Pulses: Normal: Right Posterior Tibial Pulse, Left Posterior Tibial Pulse, Right Radial Pulse and Left Radial Pulse Lower Extremity Edema: None: Bilateral Psych Psychological: normal affect Supplemental Info Supplemental Information Echocardiogram 11/2022: The left ventricular ejection fraction is 25 %. Mildly dilated left ventricle. Moderate concentric left ventricular hypertrophy. There is severe global hypokinesis of the left ventricle. Pulmonary artery systolic pressure is 45 mmHg. Biatrial enlargement Assessment and Plan Assessment and Plan (1) Persistent atrial fibrillation: Status: Acute Plan: Patient remains in atrial fibrillation. He is not symptomatic at this time. He will continue carvedilol 6.25mg twice daily, and apixaban 5mg twice daily. With his cardiomyopathy, would like to proceed with cardioversion.
[2023-01-30 07:13] VITALS: BMI 26.4
--- NOTE | 2023-01-31 12:20 | PRO.PCM_ITS ---
Procedure Report Date of Procedure: 01/31/23 CONSCIOUS SEDATION REPORT DATE OF SERVICE: January 31, 2023 BRIEF HISTORY OF PRESENT ILLNESS: The patient is a 47-year-old male who presented to [facility] for an elective outpatient cardioversion due to underlying atrial fibrillation. The patient denied ever having undergone a cardioversion in the past. He denied any prior anesthetic complications. The patient is a non-smoker without any history of asthma or COPD. He has never been diagnosed with obstructive sleep apnea. The patient is systemically anticoagulated on Eliquis. His last surface echocardiogram demonstrated an ejection fraction of 25%. PHYSICAL EXAMINATION: VITAL SIGNS: Reviewed and were acceptable. GENERAL: The patient is a male, in no apparent distress, speaking in full sentences. HEENT: Normocephalic, atraumatic. Mucous membranes are moist and pink. Good mouth opening noted. Trachea is midline. Good neck mobility. CHEST: S1, S2 irregularly irregular. No murmurs, rubs or gallops were noted. LUNGS: Clear to auscultation bilaterally without appreciable wheezes, rales or r honchi. ABDOMEN: Soft, nontender, nondistended. Positive bowel sounds. EXTREMITIES: There is no clubbing, cyanosis or edema. ASA Class: II DESCRIPTION OF PROCEDURE: After confirmation of informed consent, the patient's anesthesia plan was reviewed in detail. Etomidate was chosen. Risks and benefits were reviewed and the patient agreed to proceed. At 1149, the patient was given his first bolus of etomidate. In total, the patient required 20 mg of etomidate to achieve an appropriate level of sedation, after which time, he was given a 200 joule synchronized cardioversion by Dr. Cabrera at the bedside. This was successful in achieving normal sinus rhythm. The patient was monitored until 1203, at which time he reached his baseline mental status and function. The patient tolerated the procedure well. COMPLICATIONS: None ESTIMATED BLOOD LOSS: None RECOMMENDATIONS: Okay to recover in usual fashion. Procedures Pulmonary 9xxxx: [id number] Con Sedation
--- NOTE | 2023-01-31 12:55 | PCM.OP.PRO ---
Procedure Report Date of Procedure: 01/31/23 DC cardioversion. 47-year-old man with a history of cardiomyopathy and chronic persistent atrial fibrillation. The patient was brought to the cardiac catheterization lab in the postabsorptive nonsedated state. Informed consent was obtained. The patient was seen by Dr. Rai of the critical care division. 20 mg of intravenous etomidate was administered. Anterior-posterior pads were applied. 200 J of synchronized biphasic energy was applied with prompt reversal to sinus rhythm. Patient tolerated the procedure well. Conclusion: Successful DC cardioversion from atrial fibrillation to sinus rhythm. Follow-up as per office protocol.
== END 2023-01-31 12:55 | disposition home or self-care (01) ==
LOC: CLSP 10:24
PROVIDERS: PCP Registered Nurse; Referring Provider Internal Medicine Cardiovascular Disease; Visit Provider Internal Medicine Cardiovascular Disease
DX: I48.19 Other persistent atrial fibrillation (principal); I10 Essential (primary) hypertension; Z79.01 Long term (current) use of anticoagulants
CPT/HCPCS: 92960; 93005; J7040; A4216

== ENCOUNTER → 2023-04-26 | Outpatient (CLI) | payer OTHER, SELFPAY ==
--- NOTE | 2023-04-26 07:53 | ECHOD_ITS ---
Reason For Study: HTN, CMP, PAF. Procedure This was a 2D Doppler, Color Flow transthoracic echocardiogram. Exam performed in department. Left Ventricle Normal LV size. Mild concentric left ventricular hypertrophy. Left ventricular systolic function is normal. The estimated ejection fraction is 65 %. No regional wall motion abnormalities noted. Right Ventricle Normal RV size. Normal systolic function. Atria Normal left atrium. Normal right atrium. Mitral Valve Normal mitral valve. Tricuspid Valve Normal tricuspid valve. Aortic Valve Normal aortic valve. Trisinus/trileaflet aortic valve. Pulmonic Valve Normal pulmonic valve. Great Vessels Normal aortic root. The pulmonary artery is normal size. Normal inferior vena cava. Pericardium/Pleural No pericardial effusion. MMode/2D Measurements & Calculations LVIDd: 4.6 cm IVSd: 1.2 cm Ao root diam: 3.9 cm LVIDs: 3.4 cm LVPWd: 1.2 cm RVDd: 3.9 cm FS: 27.1 % LAV(MOD-bp): 62.7 ml LVAd ap4: 39.9 cm2 LVAd ap2: 35.2 cm2 LAV(MOD-bp) Indexed: 27.9 ml/m2 LVLd ap4: 9.2 cm LVLd ap2: 9.4 cm LAV(MOD-sp2): 57.1 ml EDV(MOD-sp4): 144.1 ml EDV(MOD-sp2): 112.7 ml LAV(MOD-sp4): 57.1 ml EDV(sp4-el): 147.1 ml EDV(sp2-el): 112.4 ml LVAs ap4: 20.2 cm2 LVAs ap2: 19.5 cm2 LVLs ap4: 6.8 cm LVLs ap2: 7.9 cm ESV(MOD-sp4): 51.9 ml ESV(MOD-sp2): 40.2 ml ESV(sp4-el): 51.0 ml ESV(sp2-el): 41.1 ml EF(MOD-sp4): 64.0 % EF(MOD-sp2): 64.3 % EF(sp4-el): 65.3 % SV(MOD-sp4): 92.3 ml SV(MOD-sp2): 72.4 ml SV(sp4-el): 96.0 ml LA dimension(2D): 3.3 cm LA A4 area: 19.1 cm2 RA A4 area: 17.3 cm2 TAPSE: 2.4 cm Doppler Measurements & Calculations Lat Peak E' Gold: 11.1 cm/sec Med Peak E' Gold: 8.4 cm/sec MV V2 max: 78.1 cm/sec MV max P.4 mmHg MV V2 mean: 44.1 cm/sec MV mean P.88 mmHg MV V2 VTI: 19.8 cm MV P1/2t max gold: 65.6 cm/sec Ao V2 max: 136.7 cm/sec LV V1 max: 106.7 cm/sec MV P1/2t: 79.4 msec Ao max P.5 mmHg LV V1 max P.6 mmHg MV dec slope: 242.1 cm/sec2 Ao V2 mean: 98.6 cm/sec LV V1 mean P.9 mmHg Ao mean P.4 mmHg LV V1 mean: 80.3 cm/sec MVA(P1/2t): 2.8 cm2 Ao V2 VTI: 29.7 cm LV V1 VTI: 23.1 cm AV (velocity ratio): 0.78 PA V2 max: 98.7 cm/sec PA V2 mean: 76.7 cm/sec ECHO/Echo Complete Interpretation Summary Normal LV size. Mild concentric left ventricular hypertrophy. Left ventricular systolic function is normal. The estimated ejection fraction is 65 %. Ordering Physician: Madalyn Lehman Referring Physician: Phoebe Carvalho Performed By: Lexis Sanchez, RANDOLPH, RVT
--- OUTSIDE RECORDS SUMMARY | 2023-04-26 08:07 | XMS RPT_ITS | CCD ---
Author Name Unknown Address [address] [place] [address] Organization [facility] Results Test Name Value Interpretation Reference Range Facil ity Summary Purpose Family History No Family History Records Found Advance Directives No Advanced Directives Records Found Additional Source Comments (unrecognized sect ion and content) No Status Records Found INFORMATION SOURCE (unrecogn ized section and content) FOR RECORDS PERTAINING TO PATIENTS WHO ARE OR HAVE BEEN ENROLLED IN A CHEMICAL DEPENDENCY/SUBSTANCEABUSE PROGRAM, SOME INFORMATION MAY BE OMITTED. This clinical summary was aggregated from multiple sources. Caution should be exercised in using it in the provision of clinical care. This summary normalizes information from multiple sources, and as a consequence, information in this document may materially change the coding, format and clinical context of patient data. In addition, data may be omitted in some cases. CLINICAL DECISIONS SHOULD BE BASED ON THE PRIMARY CLINICAL RECORDS. [employer] provides no warranty or guarantee of the accuracy or completeness of information in this document.
== END | disposition home or self-care (01) ==
PROVIDERS: PCP Registered Nurse; Referring Provider Physician Assistant Medical; Visit Provider Physician Assistant Medical
DX: I10 Essential (primary) hypertension (principal); I42.9 Cardiomyopathy, unspecified; I48.0 Paroxysmal atrial fibrillation
CPT/HCPCS: 93306

== ENCOUNTER → 2023-06-21 | Outpatient (CLI) | payer OTHER, SELFPAY ==
[2023-06-21 12:06] LABS: International Normalized Ratio 1.2
[2023-06-21 12:39] LABS: ALB/GLOB Ratio 1.1 RATIO (0.9-2.4); AST(SGOT) 22 U/L (15-37); Alanine Aminotransfer ALT/SGPT 23 U/L (16-61); Albumin, Serum 3.9 g/dL (3.2-5.0); Alkaline Phosphatase 82 U/L (45-117); Anion Gap 3 (5-15); BUN 16 mg/dL (7-18); BUN/Creat Ratio 16.3 RATIO (10-20); Calcium,Total 9.5 mg/dL (8.5-10.1); Chloride 107 mmol/L (98-107); Cholesterol 132 mg/dL (200); Creatinine, Serum 0.98 mg/dL (0.70-1.30); EST Glomerular Filtration Rate 87 mL/min (>60); Est Glom Filt Rate - Afr Amer 105 mL/min (>60); Ferritin 144 ng/mL (26-388); GGTP 86 U/L (15-85); Globulin 3.7 g/dL (2.2-4.2); Glucose 92 mg/dL (74-106); High Density Lipoprotein 55 mg/dL; Iron Binding Capacity,Total 343 ug/dL (250-450); Magnesium 1.7 mg/dL (1.6-2.6); Phosphorus 3.3 mg/dL (2.5-4.9); Potassium 4.5 mmol/L (3.5-5.1); Protein, Total 7.6 g/dL (6.4-8.2); Sodium Level 139 mmol/L (136-145); Triglycerides 47 mg/dL; Very Low Density Lipoprotein 9 mg/dL (5-40)
[2023-06-22 15:09] LABS: ANTINUCLEAR ANTIBODIES DIRECT Negative (Negative)
== END | disposition home or self-care (01) ==
LOC: LAB 11:31
PROVIDERS: PCP Registered Nurse; Referring Provider Internal Medicine; Visit Provider Internal Medicine
DX: K70.30 Alcoholic cirrhosis of liver without ascites (principal)
CPT/HCPCS: 36415; 80053; 80061; 82105; 82140; 82728; 82977; 83550; 83735; 84100; 85610; 86038; 86225; 86235

== ENCOUNTER → 2023-06-26 | Outpatient (CLI) | payer OTHER, SELFPAY ==
--- NOTE | 2023-06-26 07:34 | CT_ITS ---
STUDY: CT ABDOMEN AND PELVIS WITH CONTRAST REASON FOR EXAM: Male, 48 years old. Cirrhosis RADIATION DOSAGE (If Supplied By Facility): CTDIvol = ( 19.88 ) mGy, DLP = ( 2115.24 ) mGycm TECHNIQUE: Transaxial images were obtained through the abdomen and pelvis without oral contrast. Under ml of Isovue-370 contrast was administered. Sagittal and coronal images were reconstructed. Individualized dose optimization techniques were used for this CT. COMPARISON: No relevant prior comparison study available FINDINGS: LOWER THORAX: The visualized lung bases are clear. The visualized portions of the heart and pericardium are within normal limits. GALLBLADDER / BILE DUCTS: There are no calcified gallstones present. There is no intrahepatic biliary duct dilatation. The common bile duct is normal in caliber. There are no calcified ductal stones. LIVER: There is a calcified granuloma in the right lobe of the liver. The liver is nodular in contour, consistent with cirrhosis. The liver is low in density, consistent with fatty infiltration. There is no abnormal enhancement in the liver following contrast administration. There are no focal hepatic lesions. SPLEEN: The spleen is enlarged, measuring 14.1 cm. PANCREAS: The pancreas is within normal limits. ADRENAL GLANDS: The adrenal glands are within normal limits. KIDNEYS / BLADDER: There are no renal or ureteral stones. There is no hydronephrosis. There are no focal renal lesions. The urinary bladder appears thick-walled which may be due to under distention or cystitis. STOMACH / BOWEL: Normal visualized stomach. There is no bowel obstruction or inflammation. There is a large amount of stool in the colon, consistent with constipation. There are colonic diverticula without evidence of acute diverticulitis. The appendix is visualized and appears normal. PERITONEUM/RETROPERITONEUM: There is no abdominal or pelvic free air, free fluid or fluid collection. There is no abnormal soft tissue mass identified. There is no abdominal or pelvic lymphadenopathy. VESSELS: The aorta is normal in caliber. The IVC is unremarkable. BONES: There are no destructive osseous lesions. SOFT TISSUES: The visualized soft tissues are within normal limits. CT/CT Abd/Pelvis W/WO Contrast IMPRESSION: Cirrhotic liver with fatty infiltration. No focal hepatic lesions. Splenomegaly. No bowel obstruction or inflammation. Normal appendix. Constipation. Diverticulosis. Thick-walled urinary bladder which may be due to under distention or cystitis. Clinical correlation is recommended. No free air, free fluid or fluid collection. Electronically Signed: Kwabena Aguilera MD at 13:56 EDT ,
== END | disposition home or self-care (01) ==
LOC: CT 07:31
PROVIDERS: PCP Registered Nurse; Referring Provider Internal Medicine; Visit Provider Internal Medicine
DX: K70.30 Alcoholic cirrhosis of liver without ascites (principal)
CPT/HCPCS: 74178; Q9967

== ENCOUNTER → 2024-03-25 | Outpatient (CLI) | payer OTHER, SELFPAY ==
[2024-03-25 15:48] LABS: Anion Gap 5 (5-15); BUN 21 mg/dL (7-18); BUN/Creat Ratio 16.8 RATIO (10-20); Calcium,Total 9.5 mg/dL (8.5-10.1); Chloride 107 mmol/L (98-107); Creatinine, Serum 1.25 mg/dL (0.70-1.30); EST Glomerular Filtration Rate 66 mL/min (>60); Est Glom Filt Rate - Afr Amer 79 mL/min (>60); Glucose 90 mg/dL (74-106); Potassium 4.2 mmol/L (3.5-5.1); Sodium Level 140 mmol/L (136-145)
== END | disposition home or self-care (01) ==
LOC: LAB 14:32
PROVIDERS: PCP Registered Nurse; Referring Provider Physician Assistant Medical; Visit Provider Physician Assistant Medical
DX: I10 Essential (primary) hypertension (principal)
CPT/HCPCS: 36415; 80048

== ENCOUNTER → 2024-08-15 | Outpatient (CLI) | payer OTHER, SELFPAY ==
[2024-08-15 10:12] LABS: Hematocrit 40.3 % (40-54); Hemoglobin 14.0 g/dL (13.0-16.5); Immature Granulocytes Count 0.020 X10^3/uL (0.0-0.0); Mean Corp Hgb Conc 34.7 g/dL (32-36); Mean Corpuscular Volume 84.1 fL (80-94); Mean Platelet Vol. 8.8 fl (6.2-12.0); NRBC Flagged by Analyzer 0 % (0-5); Platelet Count 190 K/mm3 (150-450); RBC Distribution Width CV 12.8 % (11.6-14.6); RBC Distribution Width SD 39.3 fl (35.1-43.9); Red Blood Count 4.79 M/mm3 (4.6-6.2); White Blood Count 5.7 K/mm3 (4.4-11.0)
[2024-08-15 10:49] LABS: AST(SGOT) 30 U/L (<=37); Alanine Aminotransfer ALT/SGPT 32 U/L (<=46); Albumin, Serum 4.6 g/dL (3.5-5.0); Alkaline Phosphatase 81 U/L (40-129); Anion Gap 11 (5-15); BUN 17 mg/dL (4-19); BUN/Creat Ratio 17.0 RATIO (10-20); Calcium,Total 9.8 mg/dL (7.6-11.0); Carbon Dioxide 23.6 mmol/L (21.0-32.0); Chloride 104 mmol/L (98-108); Cholesterol 142 mg/dL (<=200); Globulin 3.1 g/dL (2.2-4.2); Glucose 96 mg/dL (70-99); Low Density Lipoprotein Calc. 83 mg/dL; Potassium 4.5 mmol/L (3.3-5.1); Triglycerides 83 mg/dL; Very Low Density Lipoprotein 17 mg/dL (5-40); cholesterol:hdl ratio screen 3.32
[2024-08-15 10:53] LABS: CRP < 3.00 mg/L (0.0-3.0)
== END | disposition home or self-care (01) ==
LOC: LAB 09:22
PROVIDERS: PCP Registered Nurse; Referring Provider Physician Assistant Medical; Visit Provider Physician Assistant Medical
DX: I48.0 Paroxysmal atrial fibrillation (principal); I42.9 Cardiomyopathy, unspecified; I10 Essential (primary) hypertension
CPT/HCPCS: 36415; 80053; 80061; 83036; 85025; 86140